=== PATIENT | male | born 1980 | race Caucasian/White ===

== ENCOUNTER 2023-04-04 14:13 | Inpatient (IN) | payer BC, OTHER ==
[~2023-04-04] VITALS: Ht 152.4 cm; Wt 48.6 kg
[2023-04-04] MEDS ORDERED: CHOL2000 PO (15:06)
[2023-04-04] MEDS ORDERED: LORA-782 PO (15:06)
[2023-04-04] MEDS ORDERED: LEVE1000 PO ×2 (15:06)
[2023-04-04] MEDS ORDERED: ASCO500T21 PO (15:06)
[2023-04-04] MEDS ORDERED: ZINC1CAP3 PO (15:06)
[2023-04-04] MEDS ORDERED: PHEN20EL8 PO (15:06)
[2023-04-04] MEDS ORDERED: CARB400T PO (15:06)
[2023-04-04 15:16] LABS: BASOPHILS # (AUTO) 0.1 K/UL (0.0-0.2); BASOPHILS % (AUTO) 3.2 % (0.0-2.0); EOSINOPHILS % (AUTO) 0.9 % (0.0-7.0); HEMATOCRIT 44.8 % (36.7-47.1); HEMOGLOBIN 15.2 g/dL (12.5-16.3); LYMPHOCYTES # (AUTO) 1.4 K/uL (0.8-4.8); LYMPHOCYTES % (AUTO) 32.2 % (20.5-51.5); MEAN CORPUSCULAR HEMOGLOBIN 30.1 uug (23.8-33.4); MEAN CORPUSCULAR HGB CONC 34 g/dL (32.5-36.3); MONOCYTES # (AUTO) 0.6 K/uL (0.1-1.30); MONOCYTES % (AUTO) 13.3 % (0.0-11.0); NEUTROPHILS # (AUTO) 2.1 K/uL (1.8-8.9); NEUTROPHILS % (AUTO) 50.4 % (38.5-71.5); PLATELET COUNT (AUTO) 200 K/uL (152-348); RED BLOOD CELL COUNT(AUTO) 5.04 MIL/uL (4.06-5.63); RED CELL DISTRIBUTION WIDTH 12.3 % (12.1-16.2); WHITE BLOOD COUNT (AUTO) 4.2 K/uL (3.6-10.2)
[2023-04-04 15:22] LABS: DIFFERENTIAL COMMENT 1
[2023-04-04 15:24] LABS: CALCIUM 9.1 mg/dL (8.5-10.1); CARBON DIOXIDE 37 mmol/L (21-32); CHLORIDE 95 mmol/L (98-107); CREATININE 0.3 mg/dL (0.6-1.3); GLUCOSE 133 mg/dL (74-106); POTASSIUM 4.9 mmol/L (3.5-5.1); SODIUM SERUM 134 mmol/L (136-145); UREA NITROGEN, BLOOD 6 mg/dL (7-18)
[2023-04-04 15:37] LABS: ALANINE AMINOTRANSFERASE 18 U/L (16-63); ALBUMIN 3.1 g/dL (3.4-5.0); ALKALINE PHOSPHATASE 132 U/L (50-136); ASPARTATE AMINOTRANSFERASE 30 U/L (15-37); BILIRUBIN,DIRECT < 0.1 mg/dL (0.0-0.2); BILIRUBIN,TOTAL 0.3 mg/dL (0.2-1.0); NT-PRO BNP 108 pg/mL (0-125); TOTAL PROTEIN, SERUM 7.5 g/dL (6.4-8.2)
[2023-04-04] MEDS ORDERED: levoFLOXacin 750 MG/D5W 150 ML PIGGYBACK IV ONE (16:00)
[2023-04-04] MEDS ORDERED: levoFLOXacin 750MG/D5W 150 ML IV ONE (16:36)
[2023-04-04] MEDS ORDERED: ACETAMINOPHEN 325 MG TABLET PO PRN (17:15)
[2023-04-04] MEDS ORDERED: ONDANSETRON 4 MG/2 ML VIAL IV PRN (17:15)
[2023-04-04] MEDS ORDERED: CARBAMAZEPINE 200 MG TABLET PO ONE (20:45)
[2023-04-04] MEDS ORDERED: IV D5W-0.45% NS +20 KCL 1,000 ML IV ONE ×2 (20:45→20:49)
[2023-04-04] MEDS ORDERED: PHENOBARBITAL SODIUM 130 MG/1 ML DISP.SYRIN IV ONE (20:45)
[2023-04-04] MEDS ORDERED: levETIRAcetam IV 1,500 MG in IV DEXTROSE 5% 100 ML IV ONE (20:45)
[2023-04-04] MEDS ORDERED: levETIRAcetam 500 MG/5 ML VIAL IV ONE (20:50)
[2023-04-04] MEDS ORDERED: CARBAMAZEPINE 200 MG TABLET ONE (20:52)
[2023-04-04] MEDS ORDERED: PHENOBARBITAL SODIUM 130 MG/1 ML DISP.SYRIN ONE (20:53)
[2023-04-04 23:00] VITALS: BP 127/84; TEMP 97.5; O2SAT 95
[2023-04-05] MEDS: IV NS 1000 ML 1,000 ML IV PRN ×2 (00:51→14:07)
[2023-04-05 04:00] VITALS: BP 119/72; TEMP 97.5; O2SAT 95
[2023-04-05] MEDS ORDERED: levoFLOXacin 500 MG/D5W 500 MG in PREMIXED 1 EACH IV SCH ×2 (05:30→17:00)
[2023-04-05 07:26] LABS: CALCIUM 8.8 mg/dL (8.5-10.1); CARBON DIOXIDE 30 mmol/L (21-32); CHLORIDE 97 mmol/L (98-107); CREATININE 0.2 mg/dL (0.6-1.3); GLUCOSE 99 mg/dL (74-106); PHOSPHOROUS 3.7 mg/dL (2.5-4.9); SODIUM SERUM 134 mmol/L (136-145); UREA NITROGEN, BLOOD 4 mg/dL (7-18)
[2023-04-05] MEDS: PHENOBARBITAL 32.4 MG TABLET PO SCH ×2 (08:16→16:11)
[2023-04-05] MEDS: CHOLECALCIFEROL 400 UNITS TABLET PO SCH (08:16)
[2023-04-05] MEDS: ASCORBIC ACID 500 MG TABLET PO SCH (08:16)
[2023-04-05] MEDS: ZINC SULFATE 220 MG CAPSULE PO SCH (08:16)
[2023-04-05] MEDS: CARBAMAZEPINE XR 100 MG TAB.SR.12H PO SCH ×2 (08:27→20:40)
[2023-04-05] MEDS ORDERED: CARBAMAZEPINE 400 MG PO SCH (09:00)
[2023-04-05] MEDS ORDERED: levETIRAcetam 250 MG TABLET PO SCH ×2 (09:00)
[2023-04-05] MEDS ORDERED: levETIRAcetam 500 MG TABLET PO ONE (09:00)
[2023-04-05 09:03] LABS: BASOPHILS # (AUTO) 0.1 K/UL (0.0-0.2); BASOPHILS % (AUTO) 1.9 % (0.0-2.0); EOSINOPHILS # (AUTO) 0.1 K/uL (0.0-0.7); EOSINOPHILS % (AUTO) 0.9 % (0.0-7.0); HEMATOCRIT 43.8 % (36.7-47.1); HEMOGLOBIN 14.7 g/dL (12.5-16.3); LYMPHOCYTES # (AUTO) 1.8 K/uL (0.8-4.8); LYMPHOCYTES % (AUTO) 32.1 % (20.5-51.5); MEAN CORPUSCULAR HEMOGLOBIN 29.9 uug (23.8-33.4); MEAN CORPUSCULAR HGB CONC 34 g/dL (32.5-36.3); MEAN CORPUSCULAR VOLUME 89.3 fL (73.0-96.2); MONOCYTES # (AUTO) 0.8 K/uL (0.1-1.30); MONOCYTES % (AUTO) 13.7 % (0.0-11.0); NEUTROPHILS # (AUTO) 2.9 K/uL (1.8-8.9); NEUTROPHILS % (AUTO) 51.4 % (38.5-71.5); PLATELET COUNT (AUTO) 196 K/uL (152-348); RED CELL DISTRIBUTION WIDTH 12.5 % (12.1-16.2); WHITE BLOOD COUNT (AUTO) 5.7 K/uL (3.6-10.2)
[2023-04-05 09:37] LABS: DIFFERENTIAL COMMENT 1
[2023-04-05 11:35] VITALS: BP 122/77; TEMP 98.5; O2SAT 95
[2023-04-05] MEDS ORDERED: LORA10TA7 PO (12:17)
[2023-04-05] MEDS ORDERED: PHEN32.46 PO (12:19)
[2023-04-05 13:08] VITALS: O2SAT 95
[2023-04-05 15:15] VITALS: BP 131/76; TEMP 98.4; O2SAT 96
[2023-04-05] MEDS: levETIRAcetam 500 MG TABLET PO SCH (20:39)
[2023-04-05] MEDS: DOXYCYCLINE HYCLATE IV 100 MG in IV DEXTROSE 5% 100 ML IV SCH (20:46)
[2023-04-05 21:19] VITALS: BP 139/81; TEMP 99.6; O2SAT 93
[2023-04-06] VITALS (9 sets, daily range): BP systolic 106–152; BP diastolic 62–86; TEMP 97.5–98.3; O2SAT 92–100
[2023-04-06] MEDS ORDERED: REMEDY ESSENTIAL ZINC PASTE 113 GM TOP PRN (03:00)
[2023-04-06] MEDS: IV NS 1000 ML 1,000 ML IV PRN ×2 (04:18→16:13)
[2023-04-06 07:35] LABS: BASOPHILS # (AUTO) 0.1 K/UL (0.0-0.2); EOSINOPHILS # (AUTO) 0.1 K/uL (0.0-0.7); HEMATOCRIT 43.6 % (36.7-47.1); HEMOGLOBIN 14.6 g/dL (12.5-16.3); LYMPHOCYTES # (AUTO) 2.1 K/uL (0.8-4.8); LYMPHOCYTES % (AUTO) 43.2 % (20.5-51.5); MEAN CORPUSCULAR HGB CONC 34 g/dL (32.5-36.3); MEAN CORPUSCULAR VOLUME 89.5 fL (73.0-96.2); MONOCYTES # (AUTO) 0.7 K/uL (0.1-1.30); MONOCYTES % (AUTO) 13.4 % (0.0-11.0); NEUTROPHILS % (AUTO) 40.4 % (38.5-71.5); PLATELET COUNT (AUTO) 197 K/uL (152-348); RED BLOOD CELL COUNT(AUTO) 4.88 MIL/uL (4.06-5.63); RED CELL DISTRIBUTION WIDTH 12.4 % (12.1-16.2); WHITE BLOOD COUNT (AUTO) 4.8 K/uL (3.6-10.2)
[2023-04-06 07:47] LABS: DIFFERENTIAL COMMENT 1
[2023-04-06 07:56] LABS: CALCIUM 9.1 mg/dL (8.5-10.1); CARBON DIOXIDE 32 mmol/L (21-32); CHLORIDE 103 mmol/L (98-107); CREATININE 0.4 mg/dL (0.6-1.3); GLUCOSE 105 mg/dL (74-106); MAGNESIUM 2.1 mg/dL (1.8-2.4); PHOSPHOROUS 3.5 mg/dL (2.5-4.9); POTASSIUM 3.6 mmol/L (3.5-5.1); SODIUM SERUM 141 mmol/L (136-145); UREA NITROGEN, BLOOD 4 mg/dL (7-18)
[2023-04-06] MEDS: ASCORBIC ACID 500 MG TABLET PO SCH (08:16)
[2023-04-06] MEDS: PHENOBARBITAL 32.4 MG TABLET PO SCH ×2 (08:16→16:44)
[2023-04-06] MEDS: CARBAMAZEPINE XR 100 MG TAB.SR.12H PO SCH ×2 (08:16→21:22)
[2023-04-06] MEDS: ZINC SULFATE 220 MG CAPSULE PO SCH (08:16)
[2023-04-06] MEDS: CHOLECALCIFEROL 400 UNITS TABLET PO SCH (08:17)
[2023-04-06] MEDS: levETIRAcetam 500 MG TABLET PO SCH ×2 (08:18→21:23)
[2023-04-06] MEDS: DOXYCYCLINE HYCLATE IV 100 MG in IV DEXTROSE 5% 100 ML IV SCH ×2 (08:26→21:35)
[2023-04-06] MEDS: ALBUTEROL SULFATE 2.5 MG/3 ML NEBU NEB PRN (22:37)
[2023-04-07 04:00] VITALS: BP 137/79; TEMP 98.2; O2SAT 100
[2023-04-07 05:20] VITALS: O2SAT 98
[2023-04-07 05:30] VITALS: O2SAT 99
[2023-04-07] MEDS: IV NS 1000 ML 1,000 ML IV PRN ×2 (06:15→21:48)
[2023-04-07] MEDS: ALBUTEROL SULFATE 2.5 MG/3 ML NEBU NEB PRN (06:30)
[2023-04-07 07:25] LABS: BASOPHILS % (AUTO) 0.3 % (0.0-2.0); EOSINOPHILS % (AUTO) 0.6 % (0.0-7.0); HEMATOCRIT 43.2 % (36.7-47.1); HEMOGLOBIN 14.7 g/dL (12.5-16.3); LYMPHOCYTES # (AUTO) 2.1 K/uL (0.8-4.8); LYMPHOCYTES % (AUTO) 30.4 % (20.5-51.5); MEAN CORPUSCULAR HEMOGLOBIN 30.3 uug (23.8-33.4); MEAN CORPUSCULAR HGB CONC 34 g/dL (32.5-36.3); MEAN CORPUSCULAR VOLUME 89.3 fL (73.0-96.2); MONOCYTES # (AUTO) 0.7 K/uL (0.1-1.30); MONOCYTES % (AUTO) 10.6 % (0.0-11.0); NEUTROPHILS % (AUTO) 58.1 % (38.5-71.5); PLATELET COUNT (AUTO) 221 K/uL (152-348); RED BLOOD CELL COUNT(AUTO) 4.84 MIL/uL (4.06-5.63); RED CELL DISTRIBUTION WIDTH 12.5 % (12.1-16.2); WHITE BLOOD COUNT (AUTO) 6.9 K/uL (3.6-10.2)
[2023-04-07 07:29] LABS: DIFFERENTIAL COMMENT 1
[2023-04-07 08:08] LABS: CALCIUM 8.9 mg/dL (8.5-10.1); CARBON DIOXIDE 36 mmol/L (21-32); CHLORIDE 103 mmol/L (98-107); CREATININE 0.3 mg/dL (0.6-1.3); GLUCOSE 108 mg/dL (74-106); POTASSIUM 3.5 mmol/L (3.5-5.1); SODIUM SERUM 142 mmol/L (136-145); UREA NITROGEN, BLOOD 9 mg/dL (7-18)
[2023-04-07] MEDS ORDERED: DOXY100C5 PO (08:21)
[2023-04-07] MEDS: CARBAMAZEPINE XR 100 MG TAB.SR.12H PO SCH ×2 (09:55→21:00)
[2023-04-07] MEDS: ZINC SULFATE 220 MG CAPSULE PO SCH (09:55)
[2023-04-07] MEDS: levETIRAcetam 500 MG TABLET PO SCH ×2 (09:55→21:00)
[2023-04-07] MEDS: ASCORBIC ACID 500 MG TABLET PO SCH (09:55)
[2023-04-07] MEDS: CHOLECALCIFEROL 400 UNITS TABLET PO SCH (09:55)
[2023-04-07] MEDS: PHENOBARBITAL 32.4 MG TABLET PO SCH ×2 (09:55→17:10)
[2023-04-07] MEDS: DOXYCYCLINE HYCLATE IV 100 MG in IV DEXTROSE 5% 100 ML IV SCH ×2 (09:56→22:26)
[2023-04-07 11:59] VITALS: BP 150/87; TEMP 98.2; O2SAT 84
[2023-04-07 16:04] VITALS: BP 160/94; TEMP 99; O2SAT 90
[2023-04-07] MEDS ORDERED: hydrALAZINE HCL 20 MG/1 ML VIAL IV ONE (16:45)
[2023-04-07 20:35] VITALS: BP 138/82; TEMP 98.6; O2SAT 95
[2023-04-08 04:00] VITALS: BP 118/71; TEMP 97.7; O2SAT 93
[2023-04-08] MEDS: CHOLECALCIFEROL 400 UNITS TABLET PO SCH (08:27)
[2023-04-08] MEDS: ZINC SULFATE 220 MG CAPSULE PO SCH (08:28)
[2023-04-08] MEDS: PHENOBARBITAL 32.4 MG TABLET PO SCH (08:28)
[2023-04-08] MEDS: levETIRAcetam 500 MG TABLET PO SCH (08:28)
[2023-04-08] MEDS: ASCORBIC ACID 500 MG TABLET PO SCH (08:28)
[2023-04-08] MEDS: CARBAMAZEPINE XR 100 MG TAB.SR.12H PO SCH (08:33)
[2023-04-08] MEDS: DOXYCYCLINE HYCLATE IV 100 MG in IV DEXTROSE 5% 100 ML IV SCH (08:38)
[2023-04-08 11:41] VITALS: BP 142/89; TEMP 97.2; O2SAT 92
== END 2023-04-08 14:30 | disposition home or self-care (01) | DRG 193 ==
LOC: ER 14:13 → TELE3 22:26 → MEDSURG3 04-06 15:41 → UNDODISIN 04-07 18:45
PROVIDERS: ADMIT Nurse Practitioner Acute Care; ATTEND Nurse Practitioner Acute Care
DX: J15.9 Unspecified bacterial pneumonia (principal); G93.41 Metabolic encephalopathy; J96.01 Acute respiratory failure with hypoxia; R53.2 Functional quadriplegia; E87.1 Hypo-osmolality and hyponatremia; E44.1 Mild protein-calorie malnutrition; R47.01 Aphasia; J91.8 Pleural effusion in other conditions classified elsewhere; Q03.8 Other congenital hydrocephalus; Z98.2 Presence of cerebrospinal fluid drainage device; G80.9 Cerebral palsy, unspecified; G40.909 Epilepsy, unspecified, not intractable, without status epilepticus; Z88.1 Allergy status to other antibiotic agents; N31.9 Neuromuscular dysfunction of bladder, unspecified; Z79.899 Other long term (current) drug therapy; E86.0 Dehydration; Z68.20 Body mass index [BMI] 20.0-20.9, adult; E88.09 Other disorders of plasma-protein metabolism, not elsewhere classified; Z74.01 Bed confinement status
CPT/HCPCS: 36415; 70450; 71045; 83605; 83735; 84100; 84484; 85025; 85730; 87040; 93005; 94640; 94664; A4606; A4663; A6209; A6213; G0378; J0360; J1953; J1956; J2560; J3490; J7040

== ENCOUNTER 2023-04-25 21:54 | Inpatient (IN) | payer BC, OTHER ==
[~2023-04-25] VITALS: Ht 147.3 cm; Wt 24.9 kg
[~2023-04-25 21:54] MED LIST: ASCO500T21 PO; CARB400T PO; CHOL2000 PO; DOXY100C5 PO; LEVE1000 PO; LORA10TA7 PO; PHEN32.46 PO; ZINC1CAP3 PO
[2023-04-25] MEDS ORDERED: DEXAMETHASONE SOD PHOSPHATE 10 MG INJ ONE (22:35)
[2023-04-25] MEDS ORDERED: CLINDAMYCIN 600 MG PIGGYBACK**ER OMNI IV ONE (22:36)
[2023-04-25 22:39] LABS: BASOPHILS % (AUTO) 1.3 % (0.0-2.0); DIFFERENTIAL COMMENT 0; EOSINOPHILS % (AUTO) 0.4 % (0.0-7.0); HEMATOCRIT 43.5 % (36.7-47.1); HEMOGLOBIN 14.5 g/dL (12.5-16.3); LYMPHOCYTES # (AUTO) 0.2 K/uL (0.8-4.8); LYMPHOCYTES % (AUTO) 5.2 % (20.5-51.5); MEAN CORPUSCULAR HEMOGLOBIN 29.6 uug (23.8-33.4); MEAN CORPUSCULAR HGB CONC 33 g/dL (32.5-36.3); MEAN CORPUSCULAR VOLUME 88.8 fL (73.0-96.2); MONOCYTES # (AUTO) 0.5 K/uL (0.1-1.30); MONOCYTES % (AUTO) 12.4 % (0.0-11.0); NEUTROPHILS # (AUTO) 2.9 K/uL (1.8-8.9); NEUTROPHILS % (AUTO) 80.7 % (38.5-71.5); PLATELET COUNT (AUTO) 150 K/uL (152-348); RED CELL DISTRIBUTION WIDTH 12.5 % (12.1-16.2); WHITE BLOOD COUNT (AUTO) 3.6 K/uL (3.6-10.2)
[2023-04-25] MEDS: IV NORMAL SALINE 1000 ML BAG IV ONE (22:44)
[2023-04-25 22:45] LABS: ABG BASE EXCESS 1.4 mmol/L (-2.0-2.0); ABG HCO3 27.7 mmol/L (22.0-26.0); ABG PCO2 50.3 mmHg (35.0-48.0); ABG PH 7.359 (7.340-7.440); ABG PO2 58.3 mmHg (75.0-100.0); AaDO2 88.9 mmHg; COHb 0.6 % (0.0-3.9); MetHb 0.4 % (0.0-1.5); O2Hb 88.5 % (94.0-97.0)
[2023-04-25] MEDS: DEXAMETHASONE SOD PHOSPHATE 4 MG INJ IV ONE (22:45)
[2023-04-25] MEDS: CLINDAMYCIN PHOSPHATE IV 600 MG in IV DEXTROSE 5% 100 ML IV ONE (22:48)
[2023-04-25 22:55] LABS: CALCIUM 8.7 mg/dL (8.5-10.1); CARBON DIOXIDE 32 mmol/L (21-32); CHLORIDE 93 mmol/L (98-107); CREATININE 0.3 mg/dL (0.6-1.3); GLUCOSE 134 mg/dL (74-106); SODIUM SERUM 132 mmol/L (136-145); UREA NITROGEN, BLOOD 9 mg/dL (7-18)
[2023-04-25] MEDS ORDERED: levoFLOXacin 500 MG/D5W 100 ML ONE (23:09)
[2023-04-25 23:11] LABS: ALANINE AMINOTRANSFERASE 20 U/L (16-63); ALBUMIN 3.9 g/dL (3.4-5.0); ALKALINE PHOSPHATASE 150 U/L (50-136); ASPARTATE AMINOTRANSFERASE 17 U/L (15-37); BILIRUBIN,DIRECT 0.2 mg/dL (0.0-0.2); BILIRUBIN,TOTAL 0.4 mg/dL (0.2-1.0); NT-PRO BNP 84 pg/mL (0-125); TOTAL PROTEIN, SERUM 7.8 g/dL (6.4-8.2)
[2023-04-25 23:14] LABS: *BILIRUBIN,URIN NEGATIVE (NEGATIVE); *BLOOD, URINE NEGATIVE (NEGATIVE); *CLARITY,URINE CLEAR (CLEAR); *COLOR,URINE YELLOW (YELLOW); *KETONES,URINE NEGATIVE (NEGATIVE); *PROTEIN,URINE 2+ (NEGATIVE); *UROBILINOGEN,URINE 0.2 E.U./dl (NORMAL); LEUKOCYTE ESTERASE ,URINE NEGATIVE (NEGATIVE); NITRITE, URINE NEGATIVE (NEGATIVE); UGLUCOSE NEGATIVE (NEGATIVE)
[2023-04-25 23:16] LABS: CARBAMAZEPINE (TEGRETOL) 12.4 ug/mL (4.0-12.0)
[2023-04-25] MEDS: levoFLOXacin 500 MG/D5W 100ML PIGGYBACK IV ONE (23:18)
[2023-04-26] MEDS ORDERED: ONDANSETRON 4 MG/2 ML VIAL IV PRN (02:45)
[2023-04-26] MEDS ORDERED: CLINDAMYCIN PHOSPHATE IV 600 MG in IV DEXTROSE 5% 100 ML IV SCH (06:00)
[2023-04-26] MEDS ORDERED: levETIRAcetam 250 MG TABLET PO SCH ×2 (09:00→18:00)
[2023-04-26] MEDS: LORATADINE 10 MG TABLET PO SCH (10:03)
[2023-04-26] MEDS: PHENOBARBITAL 32.4 MG TABLET PO SCH (10:03)
[2023-04-26] MEDS: ASCORBIC ACID 500 MG TABLET PO SCH (10:03)
[2023-04-26] MEDS: ZINC SULFATE 220 MG CAPSULE PO SCH (10:04)
[2023-04-26] MEDS: levETIRAcetam 500 MG TABLET PO SCH ×2 (10:04→18:03)
[2023-04-26] MEDS: CHOLECALCIFEROL 400 UNITS TABLET PO SCH (10:04)
[2023-04-26] MEDS: CLINDAMYCIN PHOSPHATE IV 600 MG in IV DEXTROSE 5% 50 ML IV SCH (10:08)
[2023-04-26 10:11] VITALS: BP 130/70; TEMP 97.8; O2SAT 99
[2023-04-26] MEDS: IV NS 1000 ML 1,000 ML IV PRN (10:31)
[2023-04-26] MEDS: CARBAMAZEPINE XR 100 MG TAB.SR.12H PO SCH (18:05)
[2023-04-26 18:34] VITALS: O2SAT 98
[2023-04-26 20:00] VITALS: BP 126/75; TEMP 98; O2SAT 94
[2023-04-26] MEDS: levoFLOXacin 500 MG/D5W 500 MG in PREMIXED 1 EACH IV SCH (21:20)
[2023-04-27] VITALS (37 sets, daily range): BP systolic 73–168; BP diastolic 41–115; TEMP 97.5–100.2; O2SAT 85–100
[2023-04-27] MEDS: levETIRAcetam 500 MG TABLET PO SCH (06:41)
[2023-04-27 06:44] LABS: ABG BASE EXCESS 5.9 mmol/L (-2.0-2.0); ABG HCO3 34.7 mmol/L (22.0-26.0); ABG PCO2 68.2 mmHg (35.0-48.0); ABG PH 7.324 (7.340-7.440); ABG TOTAL HEMOGLOBIN 15.5 G/dL (14.0-18.0); AaDO2 82.1 mmHg; MetHb 0.3 % (0.0-1.5); O2Hb 86.4 % (94.0-97.0)
[2023-04-27 06:55] LABS: BASOPHILS # (AUTO) 0.1 K/UL (0.0-0.2); EOSINOPHILS # (AUTO) 0.1 K/uL (0.0-0.7); EOSINOPHILS % (AUTO) 0.7 % (0.0-7.0); HEMATOCRIT 45.3 % (36.7-47.1); HEMOGLOBIN 15.4 g/dL (12.5-16.3); LYMPHOCYTES # (AUTO) 0.8 K/uL (0.8-4.8); LYMPHOCYTES % (AUTO) 11.5 % (20.5-51.5); MEAN CORPUSCULAR HEMOGLOBIN 30.2 uug (23.8-33.4); MEAN CORPUSCULAR HGB CONC 34 g/dL (32.5-36.3); MEAN CORPUSCULAR VOLUME 88.7 fL (73.0-96.2); MONOCYTES % (AUTO) 13.8 % (0.0-11.0); NEUTROPHILS # (AUTO) 5.1 K/uL (1.8-8.9); PLATELET COUNT (AUTO) 111 K/uL (152-348); RED CELL DISTRIBUTION WIDTH 12.7 % (12.1-16.2)
[2023-04-27 07:13] LABS: DIFFERENTIAL COMMENT 1
[2023-04-27 07:17] LABS: ALANINE AMINOTRANSFERASE 22 U/L (16-63); ALBUMIN 3.2 g/dL (3.4-5.0); ALKALINE PHOSPHATASE 136 U/L (50-136); ASPARTATE AMINOTRANSFERASE 31 U/L (15-37); BILIRUBIN,TOTAL 0.3 mg/dL (0.2-1.0); CALCIUM 8.5 mg/dL (8.5-10.1); CARBON DIOXIDE 32 mmol/L (21-32); CHLORIDE 95 mmol/L (98-107); GLUCOSE 100 mg/dL (74-106); MAGNESIUM 1.8 mg/dL (1.8-2.4); PHOSPHOROUS 3.5 mg/dL (2.5-4.9); POTASSIUM 4.4 mmol/L (3.5-5.1); SODIUM SERUM 132 mmol/L (136-145); TOTAL PROTEIN, SERUM 7.2 g/dL (6.4-8.2); UREA NITROGEN, BLOOD 6 mg/dL (7-18)
[2023-04-27 07:28] LABS: CREATININE < 0.2 mg/dL (0.6-1.3)
[2023-04-27 08:50] LABS: THYROID STIMULATING HORMONE 0.625 mIU/mL (0.358-3.740)
[2023-04-27] MEDS: DEXAMETHASONE SOD PHOSPHATE 4 MG INJ IV SCH (09:50)
[2023-04-27] MEDS: ENOXAPARIN SODIUM 30 MG/0.3 ML DISP.SYRIN SUBCUT SCH (11:50)
[2023-04-27 13:16] LABS: ABG BASE EXCESS 7.1 mmol/L (-2.0-2.0); ABG HCO3 37.8 mmol/L (22.0-26.0); ABG PCO2 81.1 mmHg (35.0-48.0); ABG PH 7.286 (7.340-7.440); ABG PO2 59.8 mmHg (75.0-100.0); ABG TOTAL HEMOGLOBIN 17.1 G/dL (14.0-18.0); AaDO2 86.6 mmHg; COHb 0.7 % (0.0-3.9); MetHb 0.4 % (0.0-1.5); O2Hb 88.9 % (94.0-97.0)
[2023-04-27 16:04] LABS: ABG HCO3 35.8 mmol/L (22.0-26.0); ABG PCO2 95.2 mmHg (35.0-48.0); ABG PH 7.193 (7.340-7.440); ABG PO2 65.5 mmHg (75.0-100.0); AaDO2 86.6 mmHg; COHb 0.5 % (0.0-3.9); MetHb 0.5 % (0.0-1.5); O2Hb 89.1 % (94.0-97.0)
[2023-04-27] MEDS ORDERED: PROPOFOL 100 ML IV PRN (16:15)
[2023-04-27] MEDS: NOREPINEPHRINE BITARTRATE 32 MG in IV NORMAL SALINE 218 ML IV PRN (17:28)
[2023-04-27] MEDS: FENTANYL CITRATE/PF 1,000 MCG in IV NORMAL SALINE 80 ML IV PRN (18:01)
[2023-04-27 18:08] LABS: ABG BASE EXCESS 3.1 mmol/L (-2.0-2.0); ABG HCO3 32.3 mmol/L (22.0-26.0); ABG PCO2 67.5 mmHg (35.0-48.0); ABG PH 7.298 (7.340-7.440); ABG PO2 70.1 mmHg (75.0-100.0); ABG SITE LEFT RADIAL; ABG TOTAL HEMOGLOBIN 18.1 G/dL (14.0-18.0); AaDO2 91.8 mmHg; COHb 0.2 % (0.0-3.9); MetHb 0.5 % (0.0-1.5); O2Hb 93.5 % (94.0-97.0); VT, ABG 350 mL
[2023-04-27] MEDS: ACETAMINOPHEN 325 MG TABLET PO PRN (21:26)
[2023-04-27] MEDS ORDERED: PHENYLEPHRINE IV 50 MG in IV NORMAL SALINE 245 ML IV PRN (23:30)
[2023-04-27] MEDS: IV NS 1000 ML 1,000 ML IV ONE (23:50)
[2023-04-28] VITALS (75 sets, daily range): BP systolic 65–174; BP diastolic 29–112; TEMP 97.3–100.1; O2SAT 97–100
[2023-04-28 05:20] LABS: BASOPHILS # (AUTO) 0.1 K/UL (0.0-0.2); BASOPHILS % (AUTO) 0.5 % (0.0-2.0); HEMATOCRIT 40.4 % (36.7-47.1); HEMOGLOBIN 13.4 g/dL (12.5-16.3); LYMPHOCYTES # (AUTO) 1.1 K/uL (0.8-4.8); LYMPHOCYTES % (AUTO) 7.6 % (20.5-51.5); MEAN CORPUSCULAR HEMOGLOBIN 29.5 uug (23.8-33.4); MEAN CORPUSCULAR HGB CONC 33 g/dL (32.5-36.3); MEAN CORPUSCULAR VOLUME 89.1 fL (73.0-96.2); MONOCYTES # (AUTO) 1.1 K/uL (0.1-1.30); NEUTROPHILS # (AUTO) 12.7 K/uL (1.8-8.9); NEUTROPHILS % (AUTO) 84.9 % (38.5-71.5); PLATELET COUNT (AUTO) 125 K/uL (152-348); RED BLOOD CELL COUNT(AUTO) 4.54 MIL/uL (4.06-5.63); RED CELL DISTRIBUTION WIDTH 12.7 % (12.1-16.2)
[2023-04-28 05:23] LABS: DIFFERENTIAL COMMENT 1
[2023-04-28 05:40] LABS: CREATININE 0.8 mg/dL (0.6-1.3); PHOSPHOROUS 1.9 mg/dL (2.5-4.9)
[2023-04-28 05:50] LABS: POTASSIUM 2.6 mmol/L (3.5-5.1)
[2023-04-28 05:51] LABS: CALCIUM 5.9 mg/dL (8.5-10.1); MAGNESIUM 1.2 mg/dL (1.8-2.4)
[2023-04-28 06:28] LABS: ABG BASE EXCESS 2.4 mmol/L (-2.0-2.0); ABG HCO3 28.6 mmol/L (22.0-26.0); ABG PCO2 49.7 mmHg (35.0-48.0); ABG PH 7.378 (7.340-7.440); ABG PO2 109.1 mmHg (75.0-100.0); ABG SITE LEFT FEMORAL; AaDO2 97.8 mmHg; COHb 0.2 % (0.0-3.9); MetHb 0.5 % (0.0-1.5); O2Hb 97.7 % (94.0-97.0); VT, ABG 350 mL
[2023-04-28] MEDS: POTASSIUM CHLORIDE 50 ML IV SCH (06:41)
[2023-04-28] MEDS: POTASSIUM CHLORIDE 20 MEQ POWDER PACKET GT ONE (06:42)
[2023-04-28] MEDS: MIDAZOLAM HCL 50 MG in IV NORMAL SALINE 40 ML IV PRN (07:53)
[2023-04-28] MEDS: IV NORMAL SALINE 500 ML BAG IV ONE (08:44)
[2023-04-28] MEDS: MAGNESIUM SULFATE/D5W 100 ML IV SCH (08:55)
[2023-04-28] MEDS: NEUTRA PHOS PACKET PO ONE (17:42)
[2023-04-28] MEDS: ACETAMINOPHEN 325 MG TABLET NG PRN (21:09)
[2023-04-28 22:32] LABS: *BILIRUBIN,URIN NEGATIVE (NEGATIVE); *BLOOD, URINE 2+ (NEGATIVE); *CLARITY,URINE CLEAR (CLEAR); *COLOR,URINE YELLOW (YELLOW); *KETONES,URINE 1+ (NEGATIVE); *PROTEIN,URINE 2+ (NEGATIVE); *UROBILINOGEN,URINE 0.2 E.U./dl (NORMAL); LEUKOCYTE ESTERASE ,URINE NEGATIVE (NEGATIVE); NITRITE, URINE NEGATIVE (NEGATIVE); PH,URINE 5.5 (5.0-8.0); UGLUCOSE NEGATIVE (NEGATIVE)
[2023-04-28 22:36] LABS: *CREATININE,URINE 54.1 mg/dL (30-125); *URINE TOTAL PROTEIN RANDOM 132.2 mg/dL (<150/24HR)
[2023-04-28 22:38] LABS: BACTERIA,URINE NONE SEEN /HPF (NONE SEEN); SQUAMOUS EPITHELIAL CELL,UR NONE SEEN /HPF (NONE SEEN); WBC,URINE NONE SEEN /HPF (0-3)
[2023-04-29] VITALS (38 sets, daily range): BP systolic 76–121; BP diastolic 45–80; TEMP 97.2–99.3; O2SAT 93–100
[2023-04-29 05:26] LABS: BASOPHILS % (AUTO) 0.4 % (0.0-2.0); HEMATOCRIT 38.3 % (36.7-47.1); HEMOGLOBIN 12.9 g/dL (12.5-16.3); LYMPHOCYTES # (AUTO) 1.3 K/uL (0.8-4.8); LYMPHOCYTES % (AUTO) 15.9 % (20.5-51.5); MEAN CORPUSCULAR HEMOGLOBIN 29.8 uug (23.8-33.4); MEAN CORPUSCULAR HGB CONC 34 g/dL (32.5-36.3); MEAN CORPUSCULAR VOLUME 88.3 fL (73.0-96.2); MONOCYTES # (AUTO) 0.5 K/uL (0.1-1.30); MONOCYTES % (AUTO) 5.6 % (0.0-11.0); NEUTROPHILS # (AUTO) 6.3 K/uL (1.8-8.9); NEUTROPHILS % (AUTO) 78.1 % (38.5-71.5); PLATELET COUNT (AUTO) 112 K/uL (152-348); RED BLOOD CELL COUNT(AUTO) 4.34 MIL/uL (4.06-5.63); RED CELL DISTRIBUTION WIDTH 12.8 % (12.1-16.2)
[2023-04-29 05:39] LABS: DIFFERENTIAL COMMENT 1
[2023-04-29 06:06] LABS: ALANINE AMINOTRANSFERASE 25 U/L (16-63); ALKALINE PHOSPHATASE 86 U/L (50-136); ASPARTATE AMINOTRANSFERASE 37 U/L (15-37); BILIRUBIN,TOTAL 0.3 mg/dL (0.2-1.0); CALCIUM 7.4 mg/dL (8.5-10.1); CARBON DIOXIDE 25 mmol/L (21-32); CHLORIDE 101 mmol/L (98-107); CREATINE KINASE, TOTAL 125 U/L (39-308); CREATININE 0.6 mg/dL (0.6-1.3); GLUCOSE 96 mg/dL (74-106); PHOSPHOROUS 2.9 mg/dL (2.5-4.9); POTASSIUM 3.8 mmol/L (3.5-5.1); SODIUM SERUM 134 mmol/L (136-145); TOTAL PROTEIN, SERUM 5.4 g/dL (6.4-8.2); UREA NITROGEN, BLOOD 16 mg/dL (7-18)
[2023-04-29 07:27] LABS: ABG BASE EXCESS -0.6 mmol/L (-2.0-2.0); ABG HCO3 23.2 mmol/L (22.0-26.0); ABG PCO2 35.7 mmHg (35.0-48.0); ABG PH 7.431 (7.340-7.440); ABG SITE RIGHT RADIAL; ABG TOTAL HEMOGLOBIN 13.4 G/dL (14.0-18.0); AaDO2 98.4 mmHg; COHb 0.1 % (0.0-3.9); MetHb 0.3 % (0.0-1.5); O2Hb 98.1 % (94.0-97.0); VT, ABG 350 mL
[2023-04-29] MEDS ORDERED: REMDESIVIR (CHARGED) 100 MG in IV NORMAL SALINE 100 ML IV SCH (12:00)
[2023-04-29] MEDS: PIPERACILLIN SODIUM/TAZOBACTAM 3.375 G in IV DEXTROSE 5% 50 ML IV SCH (12:11)
[2023-04-29] MEDS: REMDESIVIR (CHARGED) 200 MG in IV NORMAL SALINE 210 ML IV ONE (12:11)
[2023-04-30] VITALS (42 sets, daily range): BP systolic 85–135; BP diastolic 43–81; TEMP 97.3–98.3; O2SAT 93–100
[2023-04-30 05:09] LABS: BASOPHILS % (AUTO) 0.2 % (0.0-2.0); HEMATOCRIT 37.7 % (36.7-47.1); HEMOGLOBIN 12.9 g/dL (12.5-16.3); LYMPHOCYTES # (AUTO) 0.8 K/uL (0.8-4.8); LYMPHOCYTES % (AUTO) 11.8 % (20.5-51.5); MEAN CORPUSCULAR HEMOGLOBIN 29.9 uug (23.8-33.4); MEAN CORPUSCULAR HGB CONC 34 g/dL (32.5-36.3); MEAN CORPUSCULAR VOLUME 87.1 fL (73.0-96.2); MONOCYTES # (AUTO) 0.8 K/uL (0.1-1.30); MONOCYTES % (AUTO) 11.5 % (0.0-11.0); NEUTROPHILS % (AUTO) 76.5 % (38.5-71.5); PLATELET COUNT (AUTO) 104 K/uL (152-348); RED BLOOD CELL COUNT(AUTO) 4.33 MIL/uL (4.06-5.63); RED CELL DISTRIBUTION WIDTH 12.8 % (12.1-16.2); WHITE BLOOD COUNT (AUTO) 6.5 K/uL (3.6-10.2)
[2023-04-30 05:55] LABS: DIFFERENTIAL COMMENT 1
[2023-04-30 06:28] LABS: ALBUMIN 2.1 g/dL (3.4-5.0); BILIRUBIN,DIRECT 0.1 mg/dL (0.0-0.2); BILIRUBIN,TOTAL 0.4 mg/dL (0.2-1.0); CALCIUM 7.8 mg/dL (8.5-10.1); CREATININE 0.7 mg/dL (0.6-1.3); MAGNESIUM 1.9 mg/dL (1.8-2.4); PHOSPHOROUS 3.2 mg/dL (2.5-4.9); POTASSIUM 3.3 mmol/L (3.5-5.1); TOTAL PROTEIN, SERUM 5.6 g/dL (6.4-8.2)
[2023-04-30 06:28] LABS: ABG BASE EXCESS -0.1 mmol/L (-2.0-2.0); ABG HCO3 23.6 mmol/L (22.0-26.0); ABG PCO2 35.6 mmHg (35.0-48.0); ABG PO2 81.7 mmHg (75.0-100.0); ABG SITE LEFT RADIAL; ABG TOTAL HEMOGLOBIN 12.9 G/dL (14.0-18.0); AaDO2 96.5 mmHg; COHb 0.1 % (0.0-3.9); MetHb 0.5 % (0.0-1.5); O2Hb 95.8 % (94.0-97.0); VT, ABG 350 mL
[2023-04-30 08:10] LABS: PTH, INTACT 52 pg/mL (15-65)
[2023-04-30] MEDS: POTASSIUM CHLORIDE 20 MEQ POWDER PACKET GT ONE (10:19)
[2023-04-30] MEDS: NOREPINEPHRINE BITARTRATE 8 MG in IV NORMAL SALINE 242 ML IV PRN (10:20)
[2023-04-30 11:09] LABS: A/G RATIO 0.8 (0.7-1.7); ALBUMIN 2.1 g/dL (2.9-4.4); ALPHA-1-GLOBULIN 0.4 g/dL (0.0-0.4); ALPHA-2-GLOBULIN 0.7 g/dL (0.4-1.0); BETA GLOBULIN 0.6 g/dL (0.7-1.3); GAMMA GLOBULIN 0.9 g/dL (0.4-1.8); GLOBULIN, TOTAL 2.6 g/dL (2.2-3.9); M-SPIKE Not Observed g/dL (Not Observed)
[2023-04-30] MEDS: REMDESIVIR (CHARGED) 100 MG in IV NORMAL SALINE 100 ML IV SCH (13:51)
[2023-05-01] VITALS (24 sets, daily range): BP systolic 75–158; BP diastolic 47–74; TEMP 97.2–98.9; O2SAT 93–100
[2023-05-01 05:33] LABS: BASOPHILS % (AUTO) 0.1 % (0.0-2.0); EOSINOPHILS % (AUTO) 0.1 % (0.0-7.0); HEMATOCRIT 37.5 % (36.7-47.1); HEMOGLOBIN 12.7 g/dL (12.5-16.3); LYMPHOCYTES # (AUTO) 1.5 K/uL (0.8-4.8); LYMPHOCYTES % (AUTO) 28.2 % (20.5-51.5); MEAN CORPUSCULAR HEMOGLOBIN 29.5 uug (23.8-33.4); MEAN CORPUSCULAR HGB CONC 34 g/dL (32.5-36.3); MEAN CORPUSCULAR VOLUME 87.2 fL (73.0-96.2); MONOCYTES # (AUTO) 0.7 K/uL (0.1-1.30); NEUTROPHILS # (AUTO) 3.1 K/uL (1.8-8.9); NEUTROPHILS % (AUTO) 58.6 % (38.5-71.5); PLATELET COUNT (AUTO) 98 K/uL (152-348); RED CELL DISTRIBUTION WIDTH 13.2 % (12.1-16.2); WHITE BLOOD COUNT (AUTO) 5.2 K/uL (3.6-10.2)
[2023-05-01 05:37] LABS: DIFFERENTIAL COMMENT 1
[2023-05-01 05:48] LABS: ALANINE AMINOTRANSFERASE 29 U/L (16-63); ALBUMIN 1.9 g/dL (3.4-5.0); ALKALINE PHOSPHATASE 74 U/L (50-136); ASPARTATE AMINOTRANSFERASE 44 U/L (15-37); BILIRUBIN,DIRECT 0.1 mg/dL (0.0-0.2); BILIRUBIN,TOTAL 0.3 mg/dL (0.2-1.0); CARBON DIOXIDE 24 mmol/L (21-32); CHLORIDE 103 mmol/L (98-107); CREATININE 0.6 mg/dL (0.6-1.3); GLUCOSE 125 mg/dL (74-106); MAGNESIUM 1.7 mg/dL (1.8-2.4); PHOSPHOROUS 2.6 mg/dL (2.5-4.9); SODIUM SERUM 136 mmol/L (136-145); TOTAL PROTEIN, SERUM 5.1 g/dL (6.4-8.2); UREA NITROGEN, BLOOD 15 mg/dL (7-18)
[2023-05-01 05:52] LABS: ABG BASE EXCESS -0.1 mmol/L (-2.0-2.0); ABG HCO3 23.4 mmol/L (22.0-26.0); ABG PCO2 34.8 mmHg (35.0-48.0); ABG PH 7.446 (7.340-7.440); ABG PO2 59.6 mmHg (75.0-100.0); ABG SITE LEFT FEMORAL; ABG TOTAL HEMOGLOBIN 12.8 G/dL (14.0-18.0); AaDO2 92.1 mmHg; COHb 0.1 % (0.0-3.9); MetHb 0.3 % (0.0-1.5); O2Hb 90.5 % (94.0-97.0); VT, ABG 350 mL
[2023-05-01 06:03] LABS: C-REACTIVE PROTEIN 11.55 mg/dL (0.00-0.30); CALCIUM 7.4 mg/dL (8.5-10.1)
[2023-05-01 06:53] LABS: ANISOCYTOSIS 1+; LYMPHOCYTES % (MANUAL) 27 % (20-40); MONOCYTES % (MANUAL) 8 % (2-10); NEUTROPHILS % (MANUAL) 65 % (42-75); PLATELET ESTIMATE MARKED DECREASED
[2023-05-01] MEDS: POTASSIUM CHLORIDE 50 ML IV SCH (11:48)
[2023-05-01] MEDS: MAGNESIUM OXIDE 400 MG TABLET PO ONE (11:48)
[2023-05-01] MEDS: PIPERACILLIN SODIUM/TAZOBACTAM 3.375 G in IV DEXTROSE 5% 100 ML IV SCH (14:32)
[2023-05-02] VITALS (24 sets, daily range): BP systolic 86–124; BP diastolic 51–95; TEMP 97.7–99; O2SAT 95–99
[2023-05-02 04:42] LABS: BASOPHILS % (AUTO) 0.5 % (0.0-2.0); EOSINOPHILS % (AUTO) 0.2 % (0.0-7.0); HEMATOCRIT 34.8 % (36.7-47.1); HEMOGLOBIN 11.7 g/dL (12.5-16.3); LYMPHOCYTES # (AUTO) 1.8 K/uL (0.8-4.8); LYMPHOCYTES % (AUTO) 36.7 % (20.5-51.5); MEAN CORPUSCULAR HEMOGLOBIN 29.7 uug (23.8-33.4); MEAN CORPUSCULAR HGB CONC 34 g/dL (32.5-36.3); MEAN CORPUSCULAR VOLUME 88.1 fL (73.0-96.2); MONOCYTES # (AUTO) 0.6 K/uL (0.1-1.30); MONOCYTES % (AUTO) 11.6 % (0.0-11.0); NEUTROPHILS # (AUTO) 2.4 K/uL (1.8-8.9); PLATELET COUNT (AUTO) 88 K/uL (152-348); RED BLOOD CELL COUNT(AUTO) 3.95 MIL/uL (4.06-5.63); RED CELL DISTRIBUTION WIDTH 13.3 % (12.1-16.2); WHITE BLOOD COUNT (AUTO) 4.8 K/uL (3.6-10.2)
[2023-05-02 05:11] LABS: DIFFERENTIAL COMMENT 1
[2023-05-02 05:20] LABS: ALANINE AMINOTRANSFERASE 26 U/L (16-63); ALBUMIN 1.6 g/dL (3.4-5.0); ALKALINE PHOSPHATASE 66 U/L (50-136); ASPARTATE AMINOTRANSFERASE 32 U/L (15-37); BILIRUBIN,DIRECT 0.1 mg/dL (0.0-0.2); BILIRUBIN,TOTAL 0.2 mg/dL (0.2-1.0); CARBON DIOXIDE 24 mmol/L (21-32); CHLORIDE 104 mmol/L (98-107); CREATININE 0.5 mg/dL (0.6-1.3); GLUCOSE 125 mg/dL (74-106); MAGNESIUM 1.8 mg/dL (1.8-2.4); PHOSPHOROUS 2.2 mg/dL (2.5-4.9); POTASSIUM 3.5 mmol/L (3.5-5.1); SODIUM SERUM 135 mmol/L (136-145); TOTAL PROTEIN, SERUM 4.6 g/dL (6.4-8.2); UREA NITROGEN, BLOOD 13 mg/dL (7-18)
[2023-05-02 05:27] LABS: CALCIUM 7.1 mg/dL (8.5-10.1)
[2023-05-02 06:02] LABS: ABG BASE EXCESS -1.4 mmol/L (-2.0-2.0); ABG HCO3 21.8 mmol/L (22.0-26.0); ABG PCO2 32.2 mmHg (35.0-48.0); ABG PH 7.448 (7.340-7.440); ABG PO2 83.2 mmHg (75.0-100.0); ABG SITE LEFT FEMORAL; ABG TOTAL HEMOGLOBIN 13.4 G/dL (14.0-18.0); AaDO2 96.7 mmHg; COHb 0.2 % (0.0-3.9); MetHb 0.2 % (0.0-1.5); VT, ABG 350 mL
[2023-05-02] MEDS: IV NORMAL SALINE 250 ML IV PRN (06:29)
[2023-05-02 06:41] LABS: LYMPHOCYTES % (MANUAL) 37 % (20-40); MONOCYTES % (MANUAL) 6 % (2-10); NEUTROPHILS % (MANUAL) 57 % (42-75); PLATELET ESTIMATE MARKED DECREASED
[2023-05-02] MEDS: ENOXAPARIN SODIUM 30 MG/0.3 ML DISP.SYRIN SUBCUT SCH (08:47)
[2023-05-02] MEDS: JEVITY 1.2 1000 ML LIQUID GT PRN (09:43)
[2023-05-02] MEDS ORDERED: NEUTRA PHOS PACKET GT ONE (16:30)
[2023-05-02] MEDS: NEUTRA PHOS PACKET PO ONE (16:36)
[2023-05-03] VITALS (24 sets, daily range): BP systolic 97–129; BP diastolic 59–78; TEMP 97.7–98; O2SAT 90–99
[2023-05-03 05:21] LABS: BASOPHILS % (AUTO) 0.4 % (0.0-2.0); EOSINOPHILS % (AUTO) 0.6 % (0.0-7.0); HEMATOCRIT 36.3 % (36.7-47.1); HEMOGLOBIN 12.4 g/dL (12.5-16.3); LYMPHOCYTES # (AUTO) 1.5 K/uL (0.8-4.8); LYMPHOCYTES % (AUTO) 29.4 % (20.5-51.5); MEAN CORPUSCULAR HEMOGLOBIN 29.8 uug (23.8-33.4); MEAN CORPUSCULAR HGB CONC 34 g/dL (32.5-36.3); MEAN CORPUSCULAR VOLUME 87.2 fL (73.0-96.2); MONOCYTES # (AUTO) 0.7 K/uL (0.1-1.30); MONOCYTES % (AUTO) 12.8 % (0.0-11.0); NEUTROPHILS # (AUTO) 2.9 K/uL (1.8-8.9); NEUTROPHILS % (AUTO) 56.8 % (38.5-71.5); PLATELET COUNT (AUTO) 97 K/uL (152-348); RED BLOOD CELL COUNT(AUTO) 4.16 MIL/uL (4.06-5.63); RED CELL DISTRIBUTION WIDTH 13.4 % (12.1-16.2); WHITE BLOOD COUNT (AUTO) 5.1 K/uL (3.6-10.2)
[2023-05-03 05:41] LABS: DIFFERENTIAL COMMENT 1
[2023-05-03 05:45] LABS: ALANINE AMINOTRANSFERASE 20 U/L (16-63); ALBUMIN 1.9 g/dL (3.4-5.0); ALKALINE PHOSPHATASE 87 U/L (50-136); ASPARTATE AMINOTRANSFERASE 32 U/L (15-37); BILIRUBIN,DIRECT 0.2 mg/dL (0.0-0.2); BILIRUBIN,TOTAL 0.3 mg/dL (0.2-1.0); CALCIUM 7.4 mg/dL (8.5-10.1); CARBON DIOXIDE 28 mmol/L (21-32); CHLORIDE 102 mmol/L (98-107); CREATININE 0.4 mg/dL (0.6-1.3); GLUCOSE 126 mg/dL (74-106); MAGNESIUM 1.6 mg/dL (1.8-2.4); PHOSPHOROUS 3.1 mg/dL (2.5-4.9); SODIUM SERUM 136 mmol/L (136-145); TOTAL PROTEIN, SERUM 5.2 g/dL (6.4-8.2); UREA NITROGEN, BLOOD 11 mg/dL (7-18)
[2023-05-03 06:08] LABS: ABG BASE EXCESS -0.1 mmol/L (-2.0-2.0); ABG HCO3 26.1 mmol/L (22.0-26.0); ABG PCO2 48.7 mmHg (35.0-48.0); ABG PH 7.347 (7.340-7.440); ABG PO2 60.7 mmHg (75.0-100.0); ABG TOTAL HEMOGLOBIN 13.4 G/dL (14.0-18.0); AaDO2 89.8 mmHg; COHb 0.1 % (0.0-3.9); MetHb 0.2 % (0.0-1.5); O2Hb 89.4 % (94.0-97.0)
[2023-05-03] MEDS: MAGNESIUM SULFATE/D5W 100 ML IV ONE (08:48)
[2023-05-03] MEDS: POTASSIUM CHLORIDE 20 MEQ POWDER PACKET GT ONE (08:48)
[2023-05-04] VITALS (24 sets, daily range): BP systolic 101–130; BP diastolic 60–75; TEMP 96.9–98.1; O2SAT 95–99
[2023-05-04 05:37] LABS: BASOPHILS # (AUTO) 0.1 K/UL (0.0-0.2); BASOPHILS % (AUTO) 1.1 % (0.0-2.0); EOSINOPHILS % (AUTO) 0.8 % (0.0-7.0); HEMATOCRIT 34.4 % (36.7-47.1); HEMOGLOBIN 11.6 g/dL (12.5-16.3); LYMPHOCYTES # (AUTO) 1.6 K/uL (0.8-4.8); LYMPHOCYTES % (AUTO) 29.8 % (20.5-51.5); MEAN CORPUSCULAR HEMOGLOBIN 29.8 uug (23.8-33.4); MEAN CORPUSCULAR HGB CONC 34 g/dL (32.5-36.3); MEAN CORPUSCULAR VOLUME 88.2 fL (73.0-96.2); MONOCYTES # (AUTO) 0.7 K/uL (0.1-1.30); MONOCYTES % (AUTO) 13.9 % (0.0-11.0); NEUTROPHILS # (AUTO) 2.9 K/uL (1.8-8.9); NEUTROPHILS % (AUTO) 54.4 % (38.5-71.5); PLATELET COUNT (AUTO) 126 K/uL (152-348); RED CELL DISTRIBUTION WIDTH 13.7 % (12.1-16.2); WHITE BLOOD COUNT (AUTO) 5.3 K/uL (3.6-10.2)
[2023-05-04 05:51] LABS: DIFFERENTIAL COMMENT 1
[2023-05-04 05:53] LABS: ABG BASE EXCESS 2.3 mmol/L (-2.0-2.0); ABG HCO3 27.9 mmol/L (22.0-26.0); ABG PCO2 47.5 mmHg (35.0-48.0); ABG PH 7.387 (7.340-7.440); ABG PO2 72.8 mmHg (75.0-100.0); ABG SITE RIGHT RADIAL; ABG TOTAL HEMOGLOBIN 12.7 G/dL (14.0-18.0); AaDO2 94.4 mmHg; COHb 0.3 % (0.0-3.9); MetHb 0.3 % (0.0-1.5); VT, ABG 350 mL
[2023-05-04 05:58] LABS: ALANINE AMINOTRANSFERASE 36 U/L (16-63); ALBUMIN 1.6 g/dL (3.4-5.0); ALKALINE PHOSPHATASE 85 U/L (50-136); ASPARTATE AMINOTRANSFERASE 51 U/L (15-37); BILIRUBIN,DIRECT 0.1 mg/dL (0.0-0.2); BILIRUBIN,TOTAL 0.2 mg/dL (0.2-1.0); CALCIUM 7.4 mg/dL (8.5-10.1); CARBON DIOXIDE 30 mmol/L (21-32); CHLORIDE 107 mmol/L (98-107); CREATININE 0.4 mg/dL (0.6-1.3); GLUCOSE 119 mg/dL (74-106); MAGNESIUM 2.1 mg/dL (1.8-2.4); NT-PRO BNP 525 pg/mL (0-125); POTASSIUM 3.6 mmol/L (3.5-5.1); SODIUM SERUM 142 mmol/L (136-145); TOTAL PROTEIN, SERUM 4.8 g/dL (6.4-8.2); UREA NITROGEN, BLOOD 9 mg/dL (7-18)
[2023-05-04 05:59] LABS: C-REACTIVE PROTEIN 4.86 mg/dL (0.00-0.30)
[2023-05-04] MEDS: POTASSIUM CHLORIDE 20 MEQ POWDER PACKET GT ONE (08:54)
[2023-05-04] MEDS: ENOXAPARIN SODIUM 40 MG/0.4 ML DISP.SYRIN SQ SCH (08:55)
[2023-05-04] MEDS: PROTEIN SUPPLEMENT (PROSTAT) 30 ML LIQUID PO SCH (17:09)
[2023-05-05] VITALS (24 sets, daily range): BP systolic 95–134; BP diastolic 49–85; TEMP 97–98.3; O2SAT 94–99
[2023-05-05 05:38] LABS: BASOPHILS % (AUTO) 0.8 % (0.0-2.0); HEMATOCRIT 36.1 % (36.7-47.1); HEMOGLOBIN 12.1 g/dL (12.5-16.3); LYMPHOCYTES # (AUTO) 1.7 K/uL (0.8-4.8); LYMPHOCYTES % (AUTO) 40.5 % (20.5-51.5); MEAN CORPUSCULAR HEMOGLOBIN 29.6 uug (23.8-33.4); MEAN CORPUSCULAR HGB CONC 34 g/dL (32.5-36.3); MEAN CORPUSCULAR VOLUME 88.3 fL (73.0-96.2); MONOCYTES # (AUTO) 0.6 K/uL (0.1-1.30); MONOCYTES % (AUTO) 14.5 % (0.0-11.0); NEUTROPHILS # (AUTO) 1.8 K/uL (1.8-8.9); NEUTROPHILS % (AUTO) 43.2 % (38.5-71.5); PLATELET COUNT (AUTO) 146 K/uL (152-348); RED BLOOD CELL COUNT(AUTO) 4.08 MIL/uL (4.06-5.63); RED CELL DISTRIBUTION WIDTH 13.7 % (12.1-16.2); WHITE BLOOD COUNT (AUTO) 4.2 K/uL (3.6-10.2)
[2023-05-05 05:49] LABS: DIFFERENTIAL COMMENT 1
[2023-05-05 05:54] LABS: CALCIUM 7.5 mg/dL (8.5-10.1); CARBON DIOXIDE 31 mmol/L (21-32); CHLORIDE 105 mmol/L (98-107); CREATININE 0.4 mg/dL (0.6-1.3); GLUCOSE 113 mg/dL (74-106); MAGNESIUM 1.8 mg/dL (1.8-2.4); PHOSPHOROUS 2.9 mg/dL (2.5-4.9); SODIUM SERUM 142 mmol/L (136-145); UREA NITROGEN, BLOOD 10 mg/dL (7-18)
[2023-05-06] VITALS (24 sets, daily range): BP systolic 87–138; BP diastolic 53–78; TEMP 97.2–98.2; O2SAT 93–100
[2023-05-06 05:35] LABS: BASOPHILS # (AUTO) 0.1 K/UL (0.0-0.2); BASOPHILS % (AUTO) 1.5 % (0.0-2.0); EOSINOPHILS # (AUTO) 0.1 K/uL (0.0-0.7); EOSINOPHILS % (AUTO) 1.5 % (0.0-7.0); HEMATOCRIT 33.9 % (36.7-47.1); HEMOGLOBIN 11.4 g/dL (12.5-16.3); LYMPHOCYTES # (AUTO) 1.9 K/uL (0.8-4.8); LYMPHOCYTES % (AUTO) 37.1 % (20.5-51.5); MEAN CORPUSCULAR HEMOGLOBIN 29.7 uug (23.8-33.4); MEAN CORPUSCULAR HGB CONC 34 g/dL (32.5-36.3); MEAN CORPUSCULAR VOLUME 87.9 fL (73.0-96.2); MONOCYTES # (AUTO) 0.6 K/uL (0.1-1.30); MONOCYTES % (AUTO) 12.4 % (0.0-11.0); NEUTROPHILS # (AUTO) 2.4 K/uL (1.8-8.9); NEUTROPHILS % (AUTO) 47.5 % (38.5-71.5); PLATELET COUNT (AUTO) 163 K/uL (152-348); RED BLOOD CELL COUNT(AUTO) 3.85 MIL/uL (4.06-5.63); RED CELL DISTRIBUTION WIDTH 13.4 % (12.1-16.2); WHITE BLOOD COUNT (AUTO) 5.1 K/uL (3.6-10.2)
[2023-05-06 05:48] LABS: DIFFERENTIAL COMMENT 1
[2023-05-06 05:51] LABS: ABG BASE EXCESS 4.7 mmol/L (-2.0-2.0); ABG HCO3 29.8 mmol/L (22.0-26.0); ABG PCO2 46.4 mmHg (35.0-48.0); ABG PH 7.426 (7.340-7.440); ABG PO2 56.3 mmHg (75.0-100.0); ABG SITE LEFT RADIAL; ABG TOTAL HEMOGLOBIN 12.1 G/dL (14.0-18.0); AaDO2 89.8 mmHg; COHb 0.1 % (0.0-3.9); MetHb 0.3 % (0.0-1.5); O2Hb 89.3 % (94.0-97.0); VT, ABG 350 mL
[2023-05-06 05:53] LABS: CALCIUM 8.1 mg/dL (8.5-10.1); CARBON DIOXIDE 31 mmol/L (21-32); CHLORIDE 103 mmol/L (98-107); CREATININE 0.4 mg/dL (0.6-1.3); GLUCOSE 90 mg/dL (74-106); MAGNESIUM 1.9 mg/dL (1.8-2.4); PHOSPHOROUS 2.9 mg/dL (2.5-4.9); POTASSIUM 3.9 mmol/L (3.5-5.1); SODIUM SERUM 140 mmol/L (136-145); UREA NITROGEN, BLOOD 10 mg/dL (7-18)
[2023-05-07] VITALS (24 sets, daily range): BP systolic 82–115; BP diastolic 47–77; TEMP 97.5–98.7; O2SAT 63–100
[2023-05-07] MEDS: CARBAMAZEPINE 200 MG TABLET GT SCH (20:19)
[2023-05-07] MEDS: MIDODRINE HCL 5 MG TABLET PO SCH (23:07)
[2023-05-08] VITALS (24 sets, daily range): BP systolic 90–156; BP diastolic 49–88; TEMP 97.3–98.2; O2SAT 96–98
[2023-05-08 05:04] LABS: BASOPHILS # (AUTO) 0.1 K/UL (0.0-0.2); BASOPHILS % (AUTO) 1.3 % (0.0-2.0); EOSINOPHILS # (AUTO) 0.1 K/uL (0.0-0.7); EOSINOPHILS % (AUTO) 0.8 % (0.0-7.0); HEMATOCRIT 32.7 % (36.7-47.1); HEMOGLOBIN 11.1 g/dL (12.5-16.3); LYMPHOCYTES # (AUTO) 2.4 K/uL (0.8-4.8); LYMPHOCYTES % (AUTO) 36.2 % (20.5-51.5); MEAN CORPUSCULAR HEMOGLOBIN 29.7 uug (23.8-33.4); MEAN CORPUSCULAR HGB CONC 34 g/dL (32.5-36.3); MEAN CORPUSCULAR VOLUME 87.4 fL (73.0-96.2); MONOCYTES # (AUTO) 0.8 K/uL (0.1-1.30); MONOCYTES % (AUTO) 12.7 % (0.0-11.0); NEUTROPHILS # (AUTO) 3.2 K/uL (1.8-8.9); PLATELET COUNT (AUTO) 229 K/uL (152-348); RED BLOOD CELL COUNT(AUTO) 3.74 MIL/uL (4.06-5.63); WHITE BLOOD COUNT (AUTO) 6.6 K/uL (3.6-10.2)
[2023-05-08 05:20] LABS: DIFFERENTIAL COMMENT 1
[2023-05-08 05:49] LABS: ALBUMIN 1.9 g/dL (3.4-5.0); CALCIUM 7.9 mg/dL (8.5-10.1); CARBON DIOXIDE 31 mmol/L (21-32); CHLORIDE 103 mmol/L (98-107); CREATININE 0.4 mg/dL (0.6-1.3); GLUCOSE 112 mg/dL (74-106); MAGNESIUM 1.8 mg/dL (1.8-2.4); PHOSPHOROUS 3.7 mg/dL (2.5-4.9); POTASSIUM 3.7 mmol/L (3.5-5.1); SODIUM SERUM 138 mmol/L (136-145); UREA NITROGEN, BLOOD 16 mg/dL (7-18)
[2023-05-08 06:03] LABS: C-REACTIVE PROTEIN 2.45 mg/dL (0.00-0.30)
[2023-05-08 06:16] LABS: ABG BASE EXCESS 2.1 mmol/L (-2.0-2.0); ABG HCO3 25.9 mmol/L (22.0-26.0); ABG PCO2 37.8 mmHg (35.0-48.0); ABG PH 7.454 (7.340-7.440); ABG PO2 83.8 mmHg (75.0-100.0); ABG SITE RIGHT RADIAL; ABG TOTAL HEMOGLOBIN 13.6 G/dL (14.0-18.0); AaDO2 96.7 mmHg; COHb 0.1 % (0.0-3.9); MetHb 0.3 % (0.0-1.5); O2Hb 95.9 % (94.0-97.0); VT, ABG 350 mL
[2023-05-08] MEDS: levETIRAcetam 500 MG/5 ML LIQUID UDC NG SCH (17:05)
[2023-05-09] VITALS (24 sets, daily range): BP systolic 88–154; BP diastolic 53–133; TEMP 97.3–98.2; O2SAT 90–100
[2023-05-09 06:03] LABS: BASOPHILS % (AUTO) 0.2 % (0.0-2.0); EOSINOPHILS # (AUTO) 0.1 K/uL (0.0-0.7); EOSINOPHILS % (AUTO) 0.9 % (0.0-7.0); HEMATOCRIT 33.6 % (36.7-47.1); HEMOGLOBIN 11.3 g/dL (12.5-16.3); LYMPHOCYTES # (AUTO) 2.7 K/uL (0.8-4.8); LYMPHOCYTES % (AUTO) 35.9 % (20.5-51.5); MEAN CORPUSCULAR HEMOGLOBIN 29.6 uug (23.8-33.4); MEAN CORPUSCULAR HGB CONC 34 g/dL (32.5-36.3); MEAN CORPUSCULAR VOLUME 88.2 fL (73.0-96.2); MONOCYTES # (AUTO) 0.9 K/uL (0.1-1.30); MONOCYTES % (AUTO) 12.1 % (0.0-11.0); NEUTROPHILS # (AUTO) 3.8 K/uL (1.8-8.9); NEUTROPHILS % (AUTO) 50.9 % (38.5-71.5); PLATELET COUNT (AUTO) 264 K/uL (152-348); RED BLOOD CELL COUNT(AUTO) 3.81 MIL/uL (4.06-5.63); RED CELL DISTRIBUTION WIDTH 13.1 % (12.1-16.2); WHITE BLOOD COUNT (AUTO) 7.4 K/uL (3.6-10.2)
[2023-05-09 06:12] LABS: CALCIUM 8.1 mg/dL (8.5-10.1); CARBON DIOXIDE 29 mmol/L (21-32); CHLORIDE 102 mmol/L (98-107); CREATININE 0.5 mg/dL (0.6-1.3); GLUCOSE 86 mg/dL (74-106); POTASSIUM 3.7 mmol/L (3.5-5.1); SODIUM SERUM 138 mmol/L (136-145); UREA NITROGEN, BLOOD 11 mg/dL (7-18)
[2023-05-09 06:57] LABS: DIFFERENTIAL COMMENT 1
[2023-05-09] MEDS ORDERED: PROPOFOL 200 MG/20 ML BOTTLE ONE (07:35)
[2023-05-09] MEDS: levETIRAcetam 500 MG/5 ML LIQUID UDC NG SCH (08:52)
[2023-05-09] MEDS ORDERED: NOREPINEPHRINE BITARTRATE 8 MG in IV NORMAL SALINE 242 ML IV PRN (22:00)
[2023-05-10] VITALS (24 sets, daily range): BP systolic 86–132; BP diastolic 53–91; TEMP 97.6–98.3; O2SAT 94–100
[2023-05-10 05:21] LABS: BASOPHILS % (AUTO) 0.1 % (0.0-2.0); EOSINOPHILS % (AUTO) 0.6 % (0.0-7.0); HEMATOCRIT 32.6 % (36.7-47.1); LYMPHOCYTES # (AUTO) 2.5 K/uL (0.8-4.8); LYMPHOCYTES % (AUTO) 28.9 % (20.5-51.5); MEAN CORPUSCULAR HEMOGLOBIN 29.4 uug (23.8-33.4); MEAN CORPUSCULAR HGB CONC 34 g/dL (32.5-36.3); MEAN CORPUSCULAR VOLUME 87.2 fL (73.0-96.2); MONOCYTES # (AUTO) 0.9 K/uL (0.1-1.30); MONOCYTES % (AUTO) 10.6 % (0.0-11.0); NEUTROPHILS # (AUTO) 5.1 K/uL (1.8-8.9); NEUTROPHILS % (AUTO) 59.8 % (38.5-71.5); PLATELET COUNT (AUTO) 256 K/uL (152-348); RED BLOOD CELL COUNT(AUTO) 3.74 MIL/uL (4.06-5.63); RED CELL DISTRIBUTION WIDTH 13.1 % (12.1-16.2); WHITE BLOOD COUNT (AUTO) 8.6 K/uL (3.6-10.2)
[2023-05-10 05:22] LABS: DIFFERENTIAL COMMENT 1
[2023-05-10 05:31] LABS: CARBON DIOXIDE 28 mmol/L (21-32); CHLORIDE 102 mmol/L (98-107); CREATININE 0.4 mg/dL (0.6-1.3); GLUCOSE 85 mg/dL (74-106); MAGNESIUM 1.9 mg/dL (1.8-2.4); PHOSPHOROUS 3.8 mg/dL (2.5-4.9); POTASSIUM 3.7 mmol/L (3.5-5.1); SODIUM SERUM 139 mmol/L (136-145); UREA NITROGEN, BLOOD 9 mg/dL (7-18)
[2023-05-11] VITALS (34 sets, daily range): BP systolic 82–119; BP diastolic 46–91; TEMP 98.3–99; O2SAT 91–98
[2023-05-11 05:03] LABS: BASOPHILS % (AUTO) 0.6 % (0.0-2.0); EOSINOPHILS % (AUTO) 0.2 % (0.0-7.0); HEMATOCRIT 31.8 % (36.7-47.1); HEMOGLOBIN 10.9 g/dL (12.5-16.3); LYMPHOCYTES # (AUTO) 2.3 K/uL (0.8-4.8); LYMPHOCYTES % (AUTO) 29.3 % (20.5-51.5); MEAN CORPUSCULAR HEMOGLOBIN 29.8 uug (23.8-33.4); MEAN CORPUSCULAR HGB CONC 34 g/dL (32.5-36.3); MEAN CORPUSCULAR VOLUME 87.1 fL (73.0-96.2); MONOCYTES % (AUTO) 13.2 % (0.0-11.0); NEUTROPHILS # (AUTO) 4.5 K/uL (1.8-8.9); NEUTROPHILS % (AUTO) 56.7 % (38.5-71.5); PLATELET COUNT (AUTO) 275 K/uL (152-348); RED BLOOD CELL COUNT(AUTO) 3.65 MIL/uL (4.06-5.63); RED CELL DISTRIBUTION WIDTH 13.1 % (12.1-16.2); WHITE BLOOD COUNT (AUTO) 7.9 K/uL (3.6-10.2)
[2023-05-11 05:11] LABS: DIFFERENTIAL COMMENT 1
[2023-05-11 05:21] LABS: CALCIUM 8.4 mg/dL (8.5-10.1); CARBON DIOXIDE 30 mmol/L (21-32); CHLORIDE 100 mmol/L (98-107); CREATININE 0.4 mg/dL (0.6-1.3); GLUCOSE 113 mg/dL (74-106); MAGNESIUM 1.9 mg/dL (1.8-2.4); PHOSPHOROUS 3.6 mg/dL (2.5-4.9); POTASSIUM 3.8 mmol/L (3.5-5.1); SODIUM SERUM 136 mmol/L (136-145); UREA NITROGEN, BLOOD 15 mg/dL (7-18)
[2023-05-11 06:46] LABS: ABG BASE EXCESS 3.5 mmol/L (-2.0-2.0); ABG HCO3 31.3 mmol/L (22.0-26.0); ABG PCO2 62.5 mmHg (35.0-48.0); ABG PH 7.317 (7.340-7.440); ABG PO2 85.7 mmHg (75.0-100.0); ABG SITE RIGHT RADIAL; ABG TOTAL HEMOGLOBIN 12.7 G/dL (14.0-18.0); AaDO2 95.5 mmHg; COHb 0.4 % (0.0-3.9); CPAP,BG 8 cmH20; MetHb 0.4 % (0.0-1.5); O2Hb 94.4 % (94.0-97.0)
[2023-05-12] VITALS (24 sets, daily range): BP systolic 80–126; BP diastolic 45–95; TEMP 97.1–98.3; O2SAT 92–100
[2023-05-12 05:08] LABS: BASOPHILS % (AUTO) 0.2 % (0.0-2.0); EOSINOPHILS % (AUTO) 0.3 % (0.0-7.0); HEMATOCRIT 30.8 % (36.7-47.1); HEMOGLOBIN 10.4 g/dL (12.5-16.3); LYMPHOCYTES # (AUTO) 2.5 K/uL (0.8-4.8); LYMPHOCYTES % (AUTO) 32.2 % (20.5-51.5); MEAN CORPUSCULAR HEMOGLOBIN 29.8 uug (23.8-33.4); MEAN CORPUSCULAR HGB CONC 34 g/dL (32.5-36.3); MONOCYTES % (AUTO) 13.1 % (0.0-11.0); NEUTROPHILS # (AUTO) 4.2 K/uL (1.8-8.9); NEUTROPHILS % (AUTO) 54.2 % (38.5-71.5); PLATELET COUNT (AUTO) 239 K/uL (152-348); RED CELL DISTRIBUTION WIDTH 12.9 % (12.1-16.2); WHITE BLOOD COUNT (AUTO) 7.7 K/uL (3.6-10.2)
[2023-05-12 05:15] LABS: DIFFERENTIAL COMMENT 1
[2023-05-12 05:21] LABS: CALCIUM 8.3 mg/dL (8.5-10.1); CARBON DIOXIDE 28 mmol/L (21-32); CHLORIDE 104 mmol/L (98-107); CREATININE 0.4 mg/dL (0.6-1.3); GLUCOSE 91 mg/dL (74-106); MAGNESIUM 1.8 mg/dL (1.8-2.4); PHOSPHOROUS 3.2 mg/dL (2.5-4.9); POTASSIUM 3.6 mmol/L (3.5-5.1); SODIUM SERUM 140 mmol/L (136-145); UREA NITROGEN, BLOOD 18 mg/dL (7-18)
[2023-05-12 05:45] LABS: ABG BASE EXCESS 2.1 mmol/L (-2.0-2.0); ABG HCO3 24.8 mmol/L (22.0-26.0); ABG PCO2 32.2 mmHg (35.0-48.0); ABG PH 7.505 (7.340-7.440); ABG SITE LEFT RADIAL; ABG TOTAL HEMOGLOBIN 11.3 G/dL (14.0-18.0); AaDO2 97.9 mmHg; COHb 0.4 % (0.0-3.9); MetHb 0.1 % (0.0-1.5); O2Hb 97.1 % (94.0-97.0)
[2023-05-13] VITALS (23 sets, daily range): BP systolic 95–141; BP diastolic 50–69; TEMP 97–98; O2SAT 97–100
[2023-05-13 05:20] LABS: BASOPHILS # (AUTO) 0.1 K/UL (0.0-0.2); BASOPHILS % (AUTO) 0.8 % (0.0-2.0); EOSINOPHILS % (AUTO) 0.4 % (0.0-7.0); HEMATOCRIT 30.1 % (36.7-47.1); HEMOGLOBIN 10.3 g/dL (12.5-16.3); LYMPHOCYTES # (AUTO) 1.8 K/uL (0.8-4.8); LYMPHOCYTES % (AUTO) 26.7 % (20.5-51.5); MEAN CORPUSCULAR HEMOGLOBIN 29.8 uug (23.8-33.4); MEAN CORPUSCULAR HGB CONC 34 g/dL (32.5-36.3); MEAN CORPUSCULAR VOLUME 87.3 fL (73.0-96.2); MONOCYTES # (AUTO) 0.7 K/uL (0.1-1.30); MONOCYTES % (AUTO) 10.5 % (0.0-11.0); NEUTROPHILS % (AUTO) 61.6 % (38.5-71.5); PLATELET COUNT (AUTO) 239 K/uL (152-348); RED BLOOD CELL COUNT(AUTO) 3.45 MIL/uL (4.06-5.63); RED CELL DISTRIBUTION WIDTH 13.4 % (12.1-16.2); WHITE BLOOD COUNT (AUTO) 6.6 K/uL (3.6-10.2)
[2023-05-13 05:22] LABS: DIFFERENTIAL COMMENT 1
[2023-05-13 05:26] LABS: ABG BASE EXCESS 0.1 mmol/L (-2.0-2.0); ABG HCO3 22.9 mmol/L (22.0-26.0); ABG PCO2 31.3 mmHg (35.0-48.0); ABG PH 7.482 (7.340-7.440); ABG PO2 80.8 mmHg (75.0-100.0); ABG SITE RIGHT RADIAL; ABG TOTAL HEMOGLOBIN 12.2 G/dL (14.0-18.0); AaDO2 96.7 mmHg; COHb 0.2 % (0.0-3.9); MetHb 0.3 % (0.0-1.5); O2Hb 95.8 % (94.0-97.0); VT, ABG 350 mL
[2023-05-13 05:27] LABS: CALCIUM 8.3 mg/dL (8.5-10.1); CARBON DIOXIDE 26 mmol/L (21-32); CHLORIDE 99 mmol/L (98-107); CREATININE 0.4 mg/dL (0.6-1.3); GLUCOSE 105 mg/dL (74-106); MAGNESIUM 1.8 mg/dL (1.8-2.4); PHOSPHOROUS 4.1 mg/dL (2.5-4.9); POTASSIUM 3.7 mmol/L (3.5-5.1); SODIUM SERUM 134 mmol/L (136-145); UREA NITROGEN, BLOOD 21 mg/dL (7-18)
[2023-05-14] VITALS (23 sets, daily range): BP systolic 93–143; BP diastolic 52–108; TEMP 97.6–98.6; O2SAT 95–99
[2023-05-14 05:32] LABS: BASOPHILS % (AUTO) 0.2 % (0.0-2.0); EOSINOPHILS % (AUTO) 0.3 % (0.0-7.0); HEMATOCRIT 29.9 % (36.7-47.1); HEMOGLOBIN 10.1 g/dL (12.5-16.3); LYMPHOCYTES # (AUTO) 1.9 K/uL (0.8-4.8); LYMPHOCYTES % (AUTO) 42.6 % (20.5-51.5); MEAN CORPUSCULAR HEMOGLOBIN 29.8 uug (23.8-33.4); MEAN CORPUSCULAR HGB CONC 34 g/dL (32.5-36.3); MEAN CORPUSCULAR VOLUME 88.1 fL (73.0-96.2); MONOCYTES # (AUTO) 0.6 K/uL (0.1-1.30); MONOCYTES % (AUTO) 12.6 % (0.0-11.0); NEUTROPHILS % (AUTO) 44.3 % (38.5-71.5); PLATELET COUNT (AUTO) 266 K/uL (152-348); RED CELL DISTRIBUTION WIDTH 13.3 % (12.1-16.2); WHITE BLOOD COUNT (AUTO) 4.5 K/uL (3.6-10.2)
[2023-05-14 05:56] LABS: CALCIUM 8.2 mg/dL (8.5-10.1); CARBON DIOXIDE 28 mmol/L (21-32); CHLORIDE 102 mmol/L (98-107); CREATININE 0.4 mg/dL (0.6-1.3); GLUCOSE 81 mg/dL (74-106); MAGNESIUM 1.9 mg/dL (1.8-2.4); PHOSPHOROUS 4.3 mg/dL (2.5-4.9); POTASSIUM 3.8 mmol/L (3.5-5.1); SODIUM SERUM 137 mmol/L (136-145); UREA NITROGEN, BLOOD 17 mg/dL (7-18)
[2023-05-14 05:58] LABS: ABG BASE EXCESS 2.3 mmol/L (-2.0-2.0); ABG HCO3 27.1 mmol/L (22.0-26.0); ABG PCO2 43.1 mmHg (35.0-48.0); ABG PH 7.417 (7.340-7.440); ABG PO2 75.1 mmHg (75.0-100.0); ABG SITE RIGHT RADIAL; ABG TOTAL HEMOGLOBIN 11.2 G/dL (14.0-18.0); AaDO2 95.2 mmHg; COHb 0.2 % (0.0-3.9); MetHb 0.2 % (0.0-1.5); O2Hb 94.4 % (94.0-97.0); VT, ABG 350 mL
[2023-05-14 06:16] LABS: DIFFERENTIAL COMMENT 1
[2023-05-15] VITALS (23 sets, daily range): BP systolic 100–143; BP diastolic 52–70; TEMP 97.5–98.1; O2SAT 95–100
[2023-05-15 05:21] LABS: CARBON DIOXIDE 30 mmol/L (21-32); CHLORIDE 103 mmol/L (98-107); CREATININE 0.5 mg/dL (0.6-1.3); GLUCOSE 94 mg/dL (74-106); MAGNESIUM 1.9 mg/dL (1.8-2.4); PHOSPHOROUS 3.6 mg/dL (2.5-4.9); SODIUM SERUM 140 mmol/L (136-145); UREA NITROGEN, BLOOD 16 mg/dL (7-18)
[2023-05-15 05:24] LABS: BASOPHILS % (AUTO) 0.2 % (0.0-2.0); EOSINOPHILS % (AUTO) 0.2 % (0.0-7.0); HEMATOCRIT 31.7 % (36.7-47.1); HEMOGLOBIN 10.7 g/dL (12.5-16.3); LYMPHOCYTES # (AUTO) 1.8 K/uL (0.8-4.8); LYMPHOCYTES % (AUTO) 35.5 % (20.5-51.5); MEAN CORPUSCULAR HEMOGLOBIN 29.7 uug (23.8-33.4); MEAN CORPUSCULAR HGB CONC 34 g/dL (32.5-36.3); MEAN CORPUSCULAR VOLUME 88.5 fL (73.0-96.2); MONOCYTES # (AUTO) 0.9 K/uL (0.1-1.30); MONOCYTES % (AUTO) 16.5 % (0.0-11.0); NEUTROPHILS # (AUTO) 2.5 K/uL (1.8-8.9); NEUTROPHILS % (AUTO) 47.6 % (38.5-71.5); PLATELET COUNT (AUTO) 283 K/uL (152-348); RED BLOOD CELL COUNT(AUTO) 3.58 MIL/uL (4.06-5.63); RED CELL DISTRIBUTION WIDTH 13.3 % (12.1-16.2); WHITE BLOOD COUNT (AUTO) 5.2 K/uL (3.6-10.2)
[2023-05-15 05:32] LABS: CALCIUM 8.6 mg/dL (8.5-10.1)
[2023-05-15 06:15] LABS: ABG BASE EXCESS 3.2 mmol/L (-2.0-2.0); ABG HCO3 27.4 mmol/L (22.0-26.0); ABG PCO2 40.2 mmHg (35.0-48.0); ABG PH 7.451 (7.340-7.440); ABG PO2 88.4 mmHg (75.0-100.0); ABG SITE LEFT RADIAL; ABG TOTAL HEMOGLOBIN 11.3 G/dL (14.0-18.0); AaDO2 97.1 mmHg; COHb 0.5 % (0.0-3.9); MetHb 0.2 % (0.0-1.5); O2Hb 96.3 % (94.0-97.0); VT, ABG 350 mL
[2023-05-15 12:25] LABS: ANISOCYTOSIS 1+; BAND % (MANUAL) 3 % (0-10); LYMPHOCYTES % (MANUAL) 32 % (20-40); MONOCYTES % (MANUAL) 16 % (2-10); NEUTROPHILS % (MANUAL) 49 % (42-75); PLATELET ESTIMATE ADEQUATE
[2023-05-16] VITALS (23 sets, daily range): BP systolic 102–133; BP diastolic 48–69; TEMP 98–98.6; O2SAT 95–100
[2023-05-16 06:32] LABS: ABG BASE EXCESS 2.8 mmol/L (-2.0-2.0); ABG HCO3 27.8 mmol/L (22.0-26.0); ABG PCO2 44.2 mmHg (35.0-48.0); ABG PH 7.417 (7.340-7.440); ABG SITE RIGHT RADIAL; ABG TOTAL HEMOGLOBIN 14.2 G/dL (14.0-18.0); AaDO2 96.9 mmHg; COHb 0.6 % (0.0-3.9); MetHb 0.2 % (0.0-1.5); O2Hb 95.9 % (94.0-97.0); VT, ABG 350 mL
[2023-05-16 06:45] LABS: BASOPHILS % (AUTO) 0.6 % (0.0-2.0); EOSINOPHILS % (AUTO) 0.3 % (0.0-7.0); HEMATOCRIT 30.6 % (36.7-47.1); HEMOGLOBIN 10.4 g/dL (12.5-16.3); LYMPHOCYTES # (AUTO) 1.4 K/uL (0.8-4.8); LYMPHOCYTES % (AUTO) 21.8 % (20.5-51.5); MEAN CORPUSCULAR HGB CONC 34 g/dL (32.5-36.3); MEAN CORPUSCULAR VOLUME 87.9 fL (73.0-96.2); MONOCYTES # (AUTO) 0.9 K/uL (0.1-1.30); MONOCYTES % (AUTO) 13.9 % (0.0-11.0); NEUTROPHILS % (AUTO) 63.4 % (38.5-71.5); PLATELET COUNT (AUTO) 281 K/uL (152-348); RED BLOOD CELL COUNT(AUTO) 3.48 MIL/uL (4.06-5.63); RED CELL DISTRIBUTION WIDTH 13.2 % (12.1-16.2); WHITE BLOOD COUNT (AUTO) 6.3 K/uL (3.6-10.2)
[2023-05-16 07:00] LABS: DIFFERENTIAL COMMENT 1
[2023-05-16 07:01] LABS: CALCIUM 8.5 mg/dL (8.5-10.1); CARBON DIOXIDE 30 mmol/L (21-32); CHLORIDE 102 mmol/L (98-107); CREATININE 0.3 mg/dL (0.6-1.3); GLUCOSE 103 mg/dL (74-106); MAGNESIUM 1.8 mg/dL (1.8-2.4); PHOSPHOROUS 4.2 mg/dL (2.5-4.9); SODIUM SERUM 138 mmol/L (136-145); UREA NITROGEN, BLOOD 22 mg/dL (7-18)
[2023-05-17] VITALS (29 sets, daily range): BP systolic 98–170; BP diastolic 42–100; TEMP 97.8–99; O2SAT 96–100
[2023-05-17 05:03] LABS: BASOPHILS % (AUTO) 0.8 % (0.0-2.0); EOSINOPHILS % (AUTO) 0.4 % (0.0-7.0); HEMATOCRIT 29.6 % (36.7-47.1); HEMOGLOBIN 10.1 g/dL (12.5-16.3); LYMPHOCYTES # (AUTO) 1.6 K/uL (0.8-4.8); MEAN CORPUSCULAR HEMOGLOBIN 29.9 uug (23.8-33.4); MEAN CORPUSCULAR HGB CONC 34 g/dL (32.5-36.3); MEAN CORPUSCULAR VOLUME 87.9 fL (73.0-96.2); MONOCYTES # (AUTO) 0.8 K/uL (0.1-1.30); NEUTROPHILS # (AUTO) 2.6 K/uL (1.8-8.9); NEUTROPHILS % (AUTO) 51.2 % (38.5-71.5); PLATELET COUNT (AUTO) 272 K/uL (152-348); RED BLOOD CELL COUNT(AUTO) 3.37 MIL/uL (4.06-5.63); RED CELL DISTRIBUTION WIDTH 12.8 % (12.1-16.2)
[2023-05-17 05:29] LABS: CARBON DIOXIDE 30 mmol/L (21-32); CHLORIDE 102 mmol/L (98-107); CREATININE 0.4 mg/dL (0.6-1.3); GLUCOSE 98 mg/dL (74-106); MAGNESIUM 1.7 mg/dL (1.8-2.4); PHOSPHOROUS 3.4 mg/dL (2.5-4.9); SODIUM SERUM 139 mmol/L (136-145); UREA NITROGEN, BLOOD 21 mg/dL (7-18)
[2023-05-17 05:37] LABS: CALCIUM 8.3 mg/dL (8.5-10.1)
[2023-05-17 05:38] LABS: DIFFERENTIAL COMMENT 1; LYMPHOCYTES % (AUTO) 33.6 % (20.5-51.5)
[2023-05-17 05:41] LABS: ABG BASE EXCESS 2.2 mmol/L (-2.0-2.0); ABG HCO3 27.1 mmol/L (22.0-26.0); ABG PCO2 43.5 mmHg (35.0-48.0); ABG PH 7.413 (7.340-7.440); ABG PO2 142.9 mmHg (75.0-100.0); ABG SITE RIGHT RADIAL; ABG TOTAL HEMOGLOBIN 14.2 G/dL (14.0-18.0); AaDO2 98.8 mmHg; COHb 0.9 % (0.0-3.9); MetHb 0.3 % (0.0-1.5); VT, ABG 350 mL
[2023-05-17] MEDS: MAGNESIUM SULFATE/D5W 100 ML IV SCH (14:08)
[2023-05-18] VITALS (36 sets, daily range): BP systolic 107–166; BP diastolic 52–81; TEMP 98.1–100.1; O2SAT 93–100
[2023-05-18 05:30] LABS: BASOPHILS # (AUTO) 0.1 K/UL (0.0-0.2); BASOPHILS % (AUTO) 1.3 % (0.0-2.0); EOSINOPHILS % (AUTO) 0.3 % (0.0-7.0); HEMATOCRIT 33.5 % (36.7-47.1); HEMOGLOBIN 11.4 g/dL (12.5-16.3); LYMPHOCYTES # (AUTO) 1.3 K/uL (0.8-4.8); LYMPHOCYTES % (AUTO) 24.2 % (20.5-51.5); MEAN CORPUSCULAR HEMOGLOBIN 29.9 uug (23.8-33.4); MEAN CORPUSCULAR HGB CONC 34 g/dL (32.5-36.3); MONOCYTES # (AUTO) 0.7 K/uL (0.1-1.30); MONOCYTES % (AUTO) 12.5 % (0.0-11.0); NEUTROPHILS # (AUTO) 3.3 K/uL (1.8-8.9); NEUTROPHILS % (AUTO) 61.7 % (38.5-71.5); PLATELET COUNT (AUTO) 324 K/uL (152-348); RED CELL DISTRIBUTION WIDTH 12.7 % (12.1-16.2); WHITE BLOOD COUNT (AUTO) 5.3 K/uL (3.6-10.2)
[2023-05-18 05:31] LABS: DIFFERENTIAL COMMENT 1
[2023-05-18 05:32] LABS: ABG HCO3 26.2 mmol/L (22.0-26.0); ABG PCO2 43.9 mmHg (35.0-48.0); ABG PH 7.394 (7.340-7.440); ABG PO2 66.6 mmHg (75.0-100.0); ABG SITE LEFT RADIAL; AaDO2 93.1 mmHg; VT, ABG 350 mL
[2023-05-18 05:39] LABS: CALCIUM 8.7 mg/dL (8.5-10.1); CARBON DIOXIDE 29 mmol/L (21-32); CHLORIDE 100 mmol/L (98-107); CREATININE 0.5 mg/dL (0.6-1.3); GLUCOSE 91 mg/dL (74-106); MAGNESIUM 2.2 mg/dL (1.8-2.4); SODIUM SERUM 140 mmol/L (136-145); UREA NITROGEN, BLOOD 12 mg/dL (7-18)
[2023-05-18] MEDS: ACETAMINOPHEN 650 MG/20.3 ML LIQUID UDC ONE (12:51)
[2023-05-18] MEDS ORDERED: FENTANYL CITRATE 100 MCG/2 ML AMPUL IV STA (15:14)
[2023-05-18] MEDS ORDERED: ROCURONIUM BROMIDE 50 MG/5 ML VIAL IV ONE (15:15)
[2023-05-18] MEDS ORDERED: [UNRECOGNIZED DRUG - OTHER] IV ONE (15:15)
[2023-05-19] VITALS (23 sets, daily range): BP systolic 102–138; BP diastolic 42–68; TEMP 99–100; O2SAT 96–100
[2023-05-19 05:04] LABS: BASOPHILS # (AUTO) 0.1 K/UL (0.0-0.2); BASOPHILS % (AUTO) 1.2 % (0.0-2.0); EOSINOPHILS % (AUTO) 0.3 % (0.0-7.0); HEMATOCRIT 29.6 % (36.7-47.1); HEMOGLOBIN 10.1 g/dL (12.5-16.3); LYMPHOCYTES # (AUTO) 1.2 K/uL (0.8-4.8); MEAN CORPUSCULAR HEMOGLOBIN 29.9 uug (23.8-33.4); MEAN CORPUSCULAR HGB CONC 34 g/dL (32.5-36.3); MEAN CORPUSCULAR VOLUME 87.4 fL (73.0-96.2); MONOCYTES # (AUTO) 1.2 K/uL (0.1-1.30); NEUTROPHILS # (AUTO) 4.4 K/uL (1.8-8.9); NEUTROPHILS % (AUTO) 63.8 % (38.5-71.5); PLATELET COUNT (AUTO) 280 K/uL (152-348); RED BLOOD CELL COUNT(AUTO) 3.39 MIL/uL (4.06-5.63); WHITE BLOOD COUNT (AUTO) 6.9 K/uL (3.6-10.2)
[2023-05-19 05:22] LABS: DIFFERENTIAL COMMENT 1
[2023-05-19 05:23] LABS: LYMPHOCYTES % (AUTO) 20.7 % (20.5-51.5)
[2023-05-19 05:25] LABS: CALCIUM 8.4 mg/dL (8.5-10.1); CARBON DIOXIDE 29 mmol/L (21-32); CHLORIDE 102 mmol/L (98-107); CREATININE 0.4 mg/dL (0.6-1.3); GLUCOSE 120 mg/dL (74-106); MAGNESIUM 1.8 mg/dL (1.8-2.4); POTASSIUM 3.6 mmol/L (3.5-5.1); SODIUM SERUM 139 mmol/L (136-145); UREA NITROGEN, BLOOD 17 mg/dL (7-18)
[2023-05-19 05:35] LABS: ABG BASE EXCESS 3.8 mmol/L (-2.0-2.0); ABG HCO3 27.3 mmol/L (22.0-26.0); ABG PCO2 37.3 mmHg (35.0-48.0); ABG PH 7.483 (7.340-7.440); ABG SITE LEFT RADIAL; ABG TOTAL HEMOGLOBIN 11.5 G/dL (14.0-18.0); AaDO2 98.2 mmHg; COHb 0.3 % (0.0-3.9); MetHb 0.3 % (0.0-1.5); O2Hb 97.5 % (94.0-97.0); VT, ABG 350 mL
[2023-05-19] MEDS ORDERED: CARBAMAZEPINE 200 MG TABLET ONE ×2 (11:20→17:56)
[2023-05-19] MEDS ORDERED: QUETIAPINE FUMARATE 25 MG TABLET ONE ×2 (11:21→17:56)
[2023-05-19] MEDS ORDERED: levETIRAcetam 500 MG/5 ML LIQUID UDC ONE ×4 (11:21→18:03)
[2023-05-19] MEDS ORDERED: PHENOBARBITAL 32.4 MG TABLET ONE ×2 (11:22→17:57)
[2023-05-19] MEDS ORDERED: ASCORBIC ACID 500 MG TABLET ONE (11:23)
[2023-05-19] MEDS ORDERED: LORATADINE 10 MG TABLET ONE (11:23)
[2023-05-19] MEDS ORDERED: CHOLECALCIFEROL 400 UNITS TABLET ONE (11:26)
[2023-05-19] MEDS ORDERED: ENOXAPARIN SODIUM 40 MG/0.4 ML DISP.SYRIN SQ ONE (11:27)
[2023-05-19] MEDS: QUETIAPINE FUMARATE 25 MG TABLET NG SCH (11:32)
[2023-05-19] MEDS ORDERED: MIDODRINE HCL 5 MG TABLET ONE ×2 (14:15→22:03)
[2023-05-20] VITALS (19 sets, daily range): BP systolic 102–136; BP diastolic 44–59; TEMP 98.9–100.9; O2SAT 98
[2023-05-20] MEDS ORDERED: ACETAMINOPHEN 650 MG/20.3 ML LIQUID UDC ONE (05:49)
[2023-05-20] MEDS ORDERED: MIDODRINE HCL 5 MG TABLET ONE ×3 (05:50→21:14)
[2023-05-20 07:03] LABS: BASOPHILS # (AUTO) 0.1 K/UL (0.0-0.2); EOSINOPHILS % (AUTO) 0.1 % (0.0-7.0); HEMOGLOBIN 9.6 g/dL (12.5-16.3); LYMPHOCYTES # (AUTO) 1.3 K/uL (0.8-4.8); MEAN CORPUSCULAR HEMOGLOBIN 30.1 uug (23.8-33.4); MEAN CORPUSCULAR HGB CONC 34 g/dL (32.5-36.3); MEAN CORPUSCULAR VOLUME 87.7 fL (73.0-96.2); MONOCYTES # (AUTO) 1.3 K/uL (0.1-1.30); MONOCYTES % (AUTO) 16.8 % (0.0-11.0); NEUTROPHILS # (AUTO) 4.9 K/uL (1.8-8.9); NEUTROPHILS % (AUTO) 65.1 % (38.5-71.5); PLATELET COUNT (AUTO) 255 K/uL (152-348); RED BLOOD CELL COUNT(AUTO) 3.19 MIL/uL (4.06-5.63); RED CELL DISTRIBUTION WIDTH 12.8 % (12.1-16.2); WHITE BLOOD COUNT (AUTO) 7.5 K/uL (3.6-10.2)
[2023-05-20 07:08] LABS: DIFFERENTIAL COMMENT 1
[2023-05-20 07:28] LABS: CALCIUM 8.5 mg/dL (8.5-10.1); CARBON DIOXIDE 29 mmol/L (21-32); CHLORIDE 99 mmol/L (98-107); CREATININE 0.4 mg/dL (0.6-1.3); GLUCOSE 142 mg/dL (74-106); MAGNESIUM 1.6 mg/dL (1.8-2.4); PHOSPHOROUS 3.1 mg/dL (2.5-4.9); POTASSIUM 3.5 mmol/L (3.5-5.1); SODIUM SERUM 135 mmol/L (136-145); UREA NITROGEN, BLOOD 15 mg/dL (7-18)
[2023-05-20] MEDS ORDERED: ENOXAPARIN SODIUM 40 MG/0.4 ML DISP.SYRIN SQ ONE (09:38)
[2023-05-20] MEDS ORDERED: PHENOBARBITAL 32.4 MG TABLET ONE ×2 (09:38→17:44)
[2023-05-20] MEDS ORDERED: QUETIAPINE FUMARATE 25 MG TABLET ONE ×2 (09:39→17:44)
[2023-05-20] MEDS ORDERED: ASCORBIC ACID 500 MG TABLET ONE (09:39)
[2023-05-20] MEDS ORDERED: LORATADINE 10 MG TABLET ONE (09:39)
[2023-05-20 11:03] LABS: ANISOCYTOSIS 1+; BAND % (MANUAL) 7 % (0-10); LYMPHOCYTES % (MANUAL) 22 % (20-40); MONOCYTES % (MANUAL) 13 % (2-10); NEUTROPHILS % (MANUAL) 58 % (42-75); PLATELET ESTIMATE ADEQUATE
[2023-05-20] MEDS: MAGNESIUM SULFATE/D5W 100 ML IV SCH (16:30)
[2023-05-20] MEDS ORDERED: MAGNESIUM SULFATE/D5W 100 ML ONE (18:07)
[2023-05-20] MEDS ORDERED: levETIRAcetam 500 MG/5 ML LIQUID UDC ONE (18:11)
[2023-05-20] MEDS ORDERED: CARBAMAZEPINE 200 MG TABLET ONE (21:17)
[2023-05-21] VITALS (11 sets, daily range): BP systolic 104–147; BP diastolic 43–98; TEMP 97.5–100.3; O2SAT 96–100
[2023-05-21] MEDS ORDERED: ACETAMINOPHEN 325 MG TABLET ONE ×4 (00:09→05:07)
[2023-05-21] MEDS ORDERED: MIDODRINE HCL 5 MG TABLET ONE (04:55)
[2023-05-21 05:30] LABS: BASOPHILS # (AUTO) 0.1 K/UL (0.0-0.2); BASOPHILS % (AUTO) 1.3 % (0.0-2.0); EOSINOPHILS % (AUTO) 0.7 % (0.0-7.0); HEMATOCRIT 29.4 % (36.7-47.1); HEMOGLOBIN 9.9 g/dL (12.5-16.3); LYMPHOCYTES % (AUTO) 28.5 % (20.5-51.5); MEAN CORPUSCULAR HEMOGLOBIN 29.6 uug (23.8-33.4); MEAN CORPUSCULAR HGB CONC 34 g/dL (32.5-36.3); MEAN CORPUSCULAR VOLUME 87.8 fL (73.0-96.2); MONOCYTES # (AUTO) 1.3 K/uL (0.1-1.30); MONOCYTES % (AUTO) 17.7 % (0.0-11.0); NEUTROPHILS # (AUTO) 3.7 K/uL (1.8-8.9); NEUTROPHILS % (AUTO) 51.8 % (38.5-71.5); PLATELET COUNT (AUTO) 245 K/uL (152-348); RED BLOOD CELL COUNT(AUTO) 3.34 MIL/uL (4.06-5.63); RED CELL DISTRIBUTION WIDTH 12.7 % (12.1-16.2); WHITE BLOOD COUNT (AUTO) 7.1 K/uL (3.6-10.2)
[2023-05-21 05:38] LABS: ABG BASE EXCESS 6.2 mmol/L (-2.0-2.0); ABG PCO2 40.5 mmHg (35.0-48.0); ABG PH 7.488 (7.340-7.440); ABG PO2 113.9 mmHg (75.0-100.0); ABG SITE LEFT RADIAL; ABG TOTAL HEMOGLOBIN 10.4 G/dL (14.0-18.0); AaDO2 98.4 mmHg; COHb 0.3 % (0.0-3.9); MetHb 0.4 % (0.0-1.5); O2Hb 97.4 % (94.0-97.0); VT, ABG 350 mL
[2023-05-21 05:40] LABS: DIFFERENTIAL COMMENT 1
[2023-05-21 06:01] LABS: CALCIUM 8.5 mg/dL (8.5-10.1); CARBON DIOXIDE 30 mmol/L (21-32); CHLORIDE 101 mmol/L (98-107); CREATININE 0.4 mg/dL (0.6-1.3); GLUCOSE 112 mg/dL (74-106); MAGNESIUM 2.3 mg/dL (1.8-2.4); PHOSPHOROUS 3.4 mg/dL (2.5-4.9); POTASSIUM 3.6 mmol/L (3.5-5.1); SODIUM SERUM 138 mmol/L (136-145); UREA NITROGEN, BLOOD 19 mg/dL (7-18)
[2023-05-21 06:19] LABS: BAND % (MANUAL) 2 % (0-10); LYMPHOCYTES % (MANUAL) 30 % (20-40)
[2023-05-21 06:20] LABS: MONOCYTES % (MANUAL) 15 % (2-10); NEUTROPHILS % (MANUAL) 52 % (42-75)
[2023-05-21 06:21] LABS: ANISOCYTOSIS 1+; HYPOCHROMASIA 1+; PLATELET ESTIMATE ADEQUATE
[2023-05-21] MEDS ORDERED: PIPERACILLIN SODIUM/TAZOBACTAM 3.375 G in IV DEXTROSE 5% 50 ML IV SCH (15:45)
[2023-05-21] MEDS: PIPERACILLIN SODIUM/TAZOBACTAM 3.375 G in IV DEXTROSE 5% 100 ML IV SCH (21:04)
[2023-05-22] VITALS: BP 109/50; TEMP 97.1; O2SAT 100
[2023-05-22 04:00] VITALS: BP 105/48; TEMP 97.6; O2SAT 99
[2023-05-22 07:51] VITALS: BP 128/62; TEMP 98.7; O2SAT 99
[2023-05-22 08:09] LABS: BASOPHILS # (AUTO) 0.1 K/UL (0.0-0.2); BASOPHILS % (AUTO) 0.8 % (0.0-2.0); EOSINOPHILS % (AUTO) 0.7 % (0.0-7.0); HEMATOCRIT 28.6 % (36.7-47.1); HEMOGLOBIN 9.6 g/dL (12.5-16.3); LYMPHOCYTES # (AUTO) 1.5 K/uL (0.8-4.8); LYMPHOCYTES % (AUTO) 20.7 % (20.5-51.5); MEAN CORPUSCULAR HEMOGLOBIN 29.7 uug (23.8-33.4); MEAN CORPUSCULAR HGB CONC 33 g/dL (32.5-36.3); MEAN CORPUSCULAR VOLUME 88.9 fL (73.0-96.2); MONOCYTES # (AUTO) 0.9 K/uL (0.1-1.30); MONOCYTES % (AUTO) 13.2 % (0.0-11.0); NEUTROPHILS # (AUTO) 4.6 K/uL (1.8-8.9); NEUTROPHILS % (AUTO) 64.6 % (38.5-71.5); PLATELET COUNT (AUTO) 293 K/uL (152-348); RED BLOOD CELL COUNT(AUTO) 3.22 MIL/uL (4.06-5.63); RED CELL DISTRIBUTION WIDTH 12.9 % (12.1-16.2); WHITE BLOOD COUNT (AUTO) 7.1 K/uL (3.6-10.2)
[2023-05-22 08:18] LABS: DIFFERENTIAL COMMENT 1
[2023-05-22 09:02] LABS: CALCIUM 8.7 mg/dL (8.5-10.1); CARBON DIOXIDE 29 mmol/L (21-32); CHLORIDE 102 mmol/L (98-107); CREATININE 0.5 mg/dL (0.6-1.3); GLUCOSE 127 mg/dL (74-106); PHOSPHOROUS 3.8 mg/dL (2.5-4.9); SODIUM SERUM 140 mmol/L (136-145); UREA NITROGEN, BLOOD 20 mg/dL (7-18)
[2023-05-22 09:17] LABS: MAGNESIUM 2.2 mg/dL (1.8-2.4)
[2023-05-22 11:30] VITALS: BP 112/66; TEMP 97.8; O2SAT 98
[2023-05-22 16:02] VITALS: BP 101/60; TEMP 98.9; O2SAT 99
[2023-05-22 20:00] VITALS: TEMP 98
[2023-05-23 04:00] VITALS: TEMP 98
[2023-05-23 07:50] LABS: BASOPHILS % (AUTO) 0.6 % (0.0-2.0); EOSINOPHILS % (AUTO) 0.6 % (0.0-7.0); HEMATOCRIT 27.3 % (36.7-47.1); HEMOGLOBIN 9.2 g/dL (12.5-16.3); LYMPHOCYTES % (AUTO) 31.5 % (20.5-51.5); MEAN CORPUSCULAR HEMOGLOBIN 29.7 uug (23.8-33.4); MEAN CORPUSCULAR HGB CONC 34 g/dL (32.5-36.3); MEAN CORPUSCULAR VOLUME 87.8 fL (73.0-96.2); MONOCYTES # (AUTO) 0.9 K/uL (0.1-1.30); MONOCYTES % (AUTO) 14.1 % (0.0-11.0); NEUTROPHILS # (AUTO) 3.4 K/uL (1.8-8.9); NEUTROPHILS % (AUTO) 53.2 % (38.5-71.5); PLATELET COUNT (AUTO) 308 K/uL (152-348); RED CELL DISTRIBUTION WIDTH 12.6 % (12.1-16.2); WHITE BLOOD COUNT (AUTO) 6.3 K/uL (3.6-10.2)
[2023-05-23 07:57] LABS: DIFFERENTIAL COMMENT 1
[2023-05-23 08:06] LABS: CALCIUM 8.6 mg/dL (8.5-10.1); CARBON DIOXIDE 31 mmol/L (21-32); CHLORIDE 101 mmol/L (98-107); CREATININE 0.5 mg/dL (0.6-1.3); GLUCOSE 112 mg/dL (74-106); MAGNESIUM 2.1 mg/dL (1.8-2.4); PHOSPHOROUS 3.3 mg/dL (2.5-4.9); POTASSIUM 3.6 mmol/L (3.5-5.1); SODIUM SERUM 141 mmol/L (136-145); UREA NITROGEN, BLOOD 18 mg/dL (7-18)
[2023-05-23 08:43] VITALS: BP 134/61; TEMP 98.4; O2SAT 97
[2023-05-23 12:45] VITALS: BP 112/52; TEMP 98.4
[2023-05-23 16:43] VITALS: BP 123/69; TEMP 99.7; O2SAT 96
[2023-05-23 20:00] VITALS: BP 99/52; TEMP 97.4; O2SAT 99
[2023-05-23] MEDS: QUETIAPINE FUMARATE 25 MG TABLET NG SCH (20:38)
[2023-05-24 00:07] VITALS: BP 111/55; TEMP 97.4; O2SAT 99
[2023-05-24 04:00] VITALS: BP 100/55; TEMP 97.4; O2SAT 99
[2023-05-24 07:36] VITALS: BP 125/58; TEMP 97.3; O2SAT 98
[2023-05-24 11:32] VITALS: BP 114/43; TEMP 98.8; O2SAT 98
[2023-05-24 15:57] VITALS: BP 114/48; TEMP 97.8; O2SAT 98
[2023-05-24 20:12] VITALS: BP 109/44; TEMP 98.9; O2SAT 97
[2023-05-25 00:07] VITALS: BP 108/61; TEMP 98.3; O2SAT 95
[2023-05-25 04:19] VITALS: BP 104/53; TEMP 98.3; O2SAT 98
[2023-05-25 07:23] LABS: BASOPHILS % (AUTO) 0.6 % (0.0-2.0); EOSINOPHILS # (AUTO) 0.1 K/uL (0.0-0.7); EOSINOPHILS % (AUTO) 0.9 % (0.0-7.0); HEMATOCRIT 28.5 % (36.7-47.1); HEMOGLOBIN 9.6 g/dL (12.5-16.3); LYMPHOCYTES # (AUTO) 1.8 K/uL (0.8-4.8); MEAN CORPUSCULAR HEMOGLOBIN 29.6 uug (23.8-33.4); MEAN CORPUSCULAR HGB CONC 34 g/dL (32.5-36.3); MONOCYTES # (AUTO) 0.9 K/uL (0.1-1.30); MONOCYTES % (AUTO) 14.7 % (0.0-11.0); NEUTROPHILS # (AUTO) 3.4 K/uL (1.8-8.9); NEUTROPHILS % (AUTO) 54.8 % (38.5-71.5); PLATELET COUNT (AUTO) 404 K/uL (152-348); RED BLOOD CELL COUNT(AUTO) 3.24 MIL/uL (4.06-5.63); RED CELL DISTRIBUTION WIDTH 12.6 % (12.1-16.2); WHITE BLOOD COUNT (AUTO) 6.3 K/uL (3.6-10.2)
[2023-05-25 07:46] LABS: CALCIUM 8.9 mg/dL (8.5-10.1); CARBON DIOXIDE 30 mmol/L (21-32); CHLORIDE 104 mmol/L (98-107); CREATININE 0.5 mg/dL (0.6-1.3); GLUCOSE 119 mg/dL (74-106); MAGNESIUM 2.2 mg/dL (1.8-2.4); PHOSPHOROUS 3.7 mg/dL (2.5-4.9); POTASSIUM 3.8 mmol/L (3.5-5.1); SODIUM SERUM 143 mmol/L (136-145); UREA NITROGEN, BLOOD 17 mg/dL (7-18)
[2023-05-25 07:53] LABS: DIFFERENTIAL COMMENT 1
[2023-05-25 07:58] VITALS: BP 107/45; TEMP 97.6; O2SAT 94
[2023-05-25 11:14] VITALS: BP 108/56; TEMP 99; O2SAT 94
[2023-05-25 15:52] VITALS: BP 109/54; TEMP 97.8; O2SAT 94
[2023-05-25 20:25] VITALS: BP 114/65; TEMP 98.6; O2SAT 94
[2023-05-26 04:35] VITALS: BP 105/56; TEMP 97.4; O2SAT 98
[2023-05-26 12:37] VITALS: BP 110/55; TEMP 98.3; O2SAT 98
[2023-05-26] MEDS: MEDIHONEY= THERAHONEY 1.5 OZ TUBE TOP PRN (15:01)
[2023-05-26 15:24] VITALS: BP 125/62; TEMP 98.6; O2SAT 98
== END 2023-05-26 20:30 | DRG 4 ==
LOC: ER 22:50 → TELE3 04-26 02:11 → CCU 04-27 11:19 → TRANSITION 05-19 12:35 → TELE-TD3 05-21 05:39 → TELE3 05-26 17:12
PROVIDERS: ADMIT Nurse Practitioner Acute Care; ATTEND Internal Medicine
PROC: 5A09357 Assistance with Respiratory Ventilation, Less than 24 Consecutive Hours, Continuous Positive Airway Pressure (ICD-10-PCS; principal; 2023-04-26)
PROC: 5A1955Z Respiratory Ventilation, Greater than 96 Consecutive Hours (ICD-10-PCS; 2023-04-27)
PROC: 0BH17EZ Insertion of Endotracheal Airway into Trachea, Via Natural or Artificial Opening (ICD-10-PCS; 2023-04-27)
PROC: 02HV33Z Insertion of Infusion Device into Superior Vena Cava, Percutaneous Approach (ICD-10-PCS; 2023-04-28)
PROC: XW033E5 Introduction of Remdesivir Anti-infective into Peripheral Vein, Percutaneous Approach, New Technology Group 5 (ICD-10-PCS; 2023-04-29)
PROC: 0DH63UZ Insertion of Feeding Device into Stomach, Percutaneous Approach (ICD-10-PCS; 2023-05-09)
PROC: 0B113F4 Bypass Trachea to Cutaneous with Tracheostomy Device, Percutaneous Approach (ICD-10-PCS; 2023-05-18)
DX: J96.21 Acute and chronic respiratory failure with hypoxia (principal); U07.1 COVID-19; J12.82 Pneumonia due to coronavirus disease 2019; A41.89 Other specified sepsis; R65.21 Severe sepsis with septic shock; R53.2 Functional quadriplegia; G93.41 Metabolic encephalopathy; J18.9 Pneumonia, unspecified organism; G91.9 Hydrocephalus, unspecified; D68.59 Other primary thrombophilia; E87.1 Hypo-osmolality and hyponatremia; J81.1 Chronic pulmonary edema; E44.1 Mild protein-calorie malnutrition; N17.9 Acute kidney failure, unspecified; R47.01 Aphasia; J90 Pleural effusion, not elsewhere classified; J96.22 Acute and chronic respiratory failure with hypercapnia; N31.2 Flaccid neuropathic bladder, not elsewhere classified; G80.9 Cerebral palsy, unspecified; Z98.2 Presence of cerebrospinal fluid drainage device; Z88.1 Allergy status to other antibiotic agents; S30.0XXA Contusion of lower back and pelvis, initial encounter; X58.XXXA Exposure to other specified factors, initial encounter; Y92.89 Other specified places as the place of occurrence of the external cause; G40.909 Epilepsy, unspecified, not intractable, without status epilepticus; R13.10 Dysphagia, unspecified; E87.6 Hypokalemia; E83.42 Hypomagnesemia; E83.51 Hypocalcemia; E83.39 Other disorders of phosphorus metabolism; K29.70 Gastritis, unspecified, without bleeding; M89.8X9 Other specified disorders of bone, unspecified site; I51.7 Cardiomegaly; D69.6 Thrombocytopenia, unspecified; D63.8 Anemia in other chronic diseases classified elsewhere
CPT/HCPCS: 36415; 36569; 36600; 43235; 70030-TC; 71045; 71046; 76770; 80184; 82803; 83605; 83735; 83970; 84100; 84155; 84165; 84300; 84443; 84484; 85025; 85610; 85730; 86140; 87040; 93005; 93307; 94002; 94003; 94760; 99082-TC; A4606; A4663; A6209; A6213; G0378; J0248; J1100; J1650; J1956; J2250; J2543; J3010; J3475; J3480; J3490; J7040